=== PATIENT | male | born 1970 | race African-American/Black ===

== ENCOUNTER 2024-10-04 03:20 | Inpatient (IN) | payer OTHER ==
[~2024-10-04] VITALS: Ht 182.9 cm; Wt 118.0 kg
[2024-10-04] MEDS: MORPHINE SULFATE INJ 2 MG/ml SYRG IV ONE ×2 (04:03→05:45)
[2024-10-04 04:08] VITALS: PULSE 121; RESP 16; O2SAT 98
[2024-10-04 04:11] LABS: Basophils # (auto) 0.1 10 ^3/uL (0-0.2); Basophils % (auto) 1.2 % (0.0-2.0); Eosinophils # (auto) 0 10 ^3/uL (0-0.8); Eosinophils % (auto) 0.3 % (0.0-7.0); Hematocrit 23.2 % (41.0-53.0); Hemoglobin 7.9 g/dL (13.5-17.5); Lymphocytes # (auto) 1.3 10 ^3/uL (0.4-5.4); Lymphocytes % (auto) 15.8 % (10.0-50.0); Mean Corpuscular Hemoglobin 32.1 pg (28.0-32.0); Mean Corpuscular Hgb Conc. 34.3 g/dL (32.0-36.0); Mean Corpuscular Volume 93.7 fL (80.0-100.0); Neutrophils # (auto) 5.7 10 ^3/uL (1.6-8.6); Neutrophils % (auto) 70.7 % (37.0-80.0); Platelet Count (auto) 430 10^3/uL (140-450); Red Blood Cells 2.47 10^6/uL (4.5-5.90); Red Cell Distribution Width 13.6 % (11.8-14.3); White Blood Cell 8.1 10^3/uL (4.4-10.8)
[2024-10-04 04:19] LABS: INR 1.14 (0.9-1.15); Prothrombin Time 11.9 sec (9.3-11.8)
[2024-10-04 04:24] LABS: Alanine Aminotransferase 10 U/L (7-40); Albumin 4.4 g/dL (3.2-4.8); Alkaline Phosphatase 55 U/L (46-116); Anion Gap 9 (5-15); Aspartate Aminotransferase 16 U/L (13-40); BUN/Creatinine Ratio 9.9 (10.0-20.0); Blood Urea Nitrogen 14 mg/dL (9-23); Calcium 9.4 mg/dL (8.7-10.4); Carbon Dioxide 24 mmol/L (20-31); Chloride 104 mmol/L (98-107); Sodium 137 mmol/L (136-145); Total Protein 7.9 g/dL (5.7-8.2)
[2024-10-04 04:30] LABS: Glucose 124 mg/dL (74-106); Potassium 3.4 mmol/L (3.5-5.1)
--- NOTE | 2024-10-04 04:32 | ED.PDOC ---
History of Present Illness HPI Comments 54 y/o M, with a history of hepatomegaly secondary to polycystic liver disease and current hernia, presents with complaint of abdominal distention and intermittent, right-sided abdominal pain, with associated constipation, today. Patient is a poor historian. He reports history of worsening abdominal distens ion following polycystic liver disease diagnosis 12 years ago, with associated pain. Patient reports most recent onset of pain and last having a bowel movement 3 days ago. He has not seen a physician since the age of 39 and, recently, quitting alcohol consumption, with last intake 3 weeks ago. Denies any chest pain, shortness of breath, nausea, vomiting, or other associated symptoms or modifying factors. Chief Complaint: Abdominal Pain Time Seen by MD: 03:50 Reviewed Notes: Nurses Notes, Medications, Allergies Allergies: Coded Allergies: NO KNOWN ALLERGIES (Unverified , 10/04/24) Information Source: Patient Mode of Arrival: Ambulatory Severity: Moderate Timing: Other (Years) Prehospital treatment: None Review of Systems: REVIEW OF SYSTEMS: No fever, no chills, or fatigue HEENT: No sore throat, no earache, no congestion, no neck pain. Cardiac: No chest pain. No palpitations. Lungs: No shortness of breath, no cough. GI: Abdominal pain and distention. Constipation. No nausea, no vomiting, no diarrhea : No dysuria, frequency, or urgency. No hematuria. Musculoskeletal: No joint pain , no joint swelling, no extremity edema. Skin: No rash, no itching. Neuro: No headache, no dizziness, no weakness Vital Signs Vital Signs Date Time Temp Pulse Resp B/P (MAP) Pulse Ox O2 Delivery O2 Flow Rate FiO2 10/04/24 14:00 104 18 143/98 (113) 92 10/04/24 12:00 98.7 98.7 10/04/24 08:00 Room Air* 0 21 Physical Exam General: Awake, alert and oriented. No acute distress. Skin: Skin in warm, dry and intact. Appropriate color for ethnicity. HEENT: The head is normocephalic and atraumatic. Conjunctivae are clear without exudates or hemorrhage. Sclera is non-icteric. EOM are intact. No signs of nystagmus. Eyelids are normal in appearance without swelling or lesions. Oral mucosa is pink and moist Neck: The neck is supple with normal range of motion. No JVD. Cardiac: Heart rate and rhythm are normal. No murmurs, gallops, or rubs are auscultated. Respiratory: No signs of respiratory distress. Lung sounds are clear in all lobes bilaterally without rales, rhonchi, or wheezes. Abdominal: Abdominal distention with tense ascites. Prominent abdominal wall veins. Otherwise, abdomen is soft, non-tender without distention. Bowel sounds are present and normoactive in all four quadrants. Extremities: Upper and lower extremities are atraumatic in appearance without deformity or edema. Neurological: The patient is awake, alert and oriented to person, place, and cecil e with normal speech. Speech is clear. There is no facial asymmetry. Psychiatric: Appropriate mood and affect. Good judgement and insight. Was a procedure done? Was a procedure done?: No Differential Dx Considerations may include: Differential diagnoses considered include: Ascites, polycystic liver disease, liver failure, abdominal aortic aneurysm, TN, esophageal rupture, intestinal obstruction, mesenteric ischemia, perforated viscus or solid organ rupture, CHF with hepatomegaly, pneumonia, abscess, appendicitis, biliary disease, diverticulitis, gastritis, gastroenteritis, hepatitis, hernia, inflammatory bowel disease, pancreatitis, peptic ulcer disease, urinary tract infection, ureteral colic, constipation, GERD, irritable syndrome, abdominal wall pain, nonspecific abdominal pain, herpes zoster. X-Ray, Labs, Meds, VS Vital Signs Date Time Temp Pulse Resp B/P (MAP) Pulse Ox O2 Delivery O2 Flow Rate FiO2 10/04/24 14:00 104 18 143/98 (113) 92 10/04/24 12:00 98.7 97 18 138/96 (110) 95 98.7 10/04/24 08:00 Room Air* 0 21 10/04/24 08:00 98.3 101 18 148/101 (117) 92 98.3 10/04/24 06:15 79 18 179/115 10/04/24 05:45 113 18 168/107 10/04/24 05:18 113 18 168/107 10/04/24 04:08 121 16 98 Room Air* 0 21 10/04/24 04:03 98.3 121 22 169/108 (128) 98 98.3 10/04/24 04:03 121 16 169/108 10/04/24 03:31 97.8 125 20 159/116 (130) 95 97.8 Lab Test 10/04/24 06:51 10/04/24 03:36 Range/Units Urine Color Yellow Yellow Urine Clarity Clear Clear Urine pH 6.0 5.0-9.0 Urine Specific [place] > 1.050 H 1.001-1.035 Urine Protein 1+ H Negative Urine Ketones Negative Negative Urine Blood Trace H Negative /uL Urine Nitrite Negative Negative Urine Bilirubin Negative Negative Urine Urobilinogen 2 H Negative mg/dL Urine Leukocyte Esterase Negative Negative /uL Urine RBC 4 0 - 3 /hpf Urine Microscopic WBC 1 0-3 /HPF Urine Squamous Epithelial Cells Few <5 /hpf Urine Bacteria Few H None Seen /hpf Urine Hyaline Casts Few 0 - 2 /lpf Urine Mucus Few None Seen Urine Glucose Normal Normal mg/dL White Blood Count 8.1 4.4-10.8 10^3/uL Red Blood Count 2.47 L 4.5-5.90 10^6/uL Hemoglobin 7.9 L 13.5-17.5 g/dL Hematocrit 23.2 L 41.0-53.0 % Mean Corpuscular Volume 93.7 80.0-100.0 fL Mean Corpuscular Hemoglobin 32.1 H 28.0-32.0 pg Mean Corpuscular Hemoglobin Concent 34.3 32.0-36.0 g/dL Red Cell Distribution Width 13.6 11.8-14.3 % Platelet Count 430 140-450 10^3/uL Mean Platelet Volume 7.2 6.9-10.8 fL Neutrophils (%) (Auto) 70.7 37.0-80.0 % Lymphocytes (%) (Auto) 15.8 10.0-50.0 % Monocytes (%) (Auto) 12.0 0.0-12.0 % Eosinophils (%) (Auto) 0.3 0.0-7.0 % Basophils (%) (Auto) 1.2 0.0-2.0 % Neutrophils # (Auto) 5.7 1.6-8.6 10 ^3/uL Lymphocytes # (Auto) 1.3 0.4-5.4 10 ^3/uL Monocytes # (Auto) 1.0 0-1.3 10 ^3/uL Eosinophils # (Auto) 0 0-0.8 10 ^3/uL Basophils # (Auto) 0.1 0-0.2 10 ^3/uL Nucleated Red Blood Cells 0.0 % Prothrombin Time 11.9 H 9.3-11.8 sec Prothrombin Time INR 1.14 0.9-1.15 Sodium Level 137 136-145 mmol/L Potassium Level 3.4 L 3.5-5.1 mmol/L Chloride Level 104 98-107 mmol/L Carbon Dioxide Level 24 20-31 mmol/L Anion Gap 9 5-15 Blood Urea Nitrogen 14 9-23 mg/dL Creatinine 1.41 H 0.700-1.30 mg/dL Glomerular Filtration Rate Calc 59 >90 mL/min BUN/Creatinine Ratio 9.9 L 10.0-20.0 Serum Glucose 124 H 74-106 mg/dL Calcium Level 9.4 8.7-10.4 mg/dL Total Bilirubin 1.0 0.2-1.0 mg/dL Aspartate Amino Transferase (AST) 16 13-40 U/L Alanine Aminotransferase (ALT) 10 7-40 U/L Alkaline Phosphatase 55 46-116 U/L Total Protein 7.9 5.7-8.2 g/dL Albumin 4.4 3.2-4.8 g/dL Hepatitis A IgM Antibody Negative Hepatitis B Surface Antigen Negative Negative Hepatitis B Core IgM Antibody Negative Negative Hepatitis C Antibody Negative Negative [place] [address] Ph: [phone] DIAGNOSTIC IMAGING Diagnostic Imaging Report : [id number] Signed PATIENT: CHAIM WARD ACCT: [id number] UNIT: [id number] : 1970 LOC: ER ROOM / BED: / AGE / SEX: 54 / M ADM STATUS: REG ER SERVICE 5 ORDERING PHYSICIAN: GEOVANNY GARCES MD PROCEDURE(s): CXR1 - CHEST XRAY 1 VIEW REASON: Abdominal distention, ascites ORDER NUMBER(s): [id number], ACCESSION NUMBER(s): [id number] CHEST RADIOGRAPH Indication: Abdominal distention, ascites Technique: Single frontal view of the chest was obtained COMPARISON: None FINDINGS: Lines and Tubes: None Lungs: Clear Pleura: No effusion. No pneumothorax. Cardiomediastinal contours: Cardiomegaly Bones: Unremarkable IMPRESSION: Cardiomegaly ATED BY: GEE GARCIA MD DICTATED DATE/TIME: 10/04/24524 SIGNED BY: GEE GARCIA MD SIGNED DATE/TIME: 10/04/24524 CC: [place] [id number] Ph: [phone] DIAGNOSTIC IMAGING Diagnostic Imaging Report : [id number] Signed PATIENT: CHAIM WARD ACCT: [id number] UNIT: [id number] : 1970 LOC: ER ROOM / BED: / AGE / SEX: 54 / M ADM STATUS: REG ER SERVICE 5 ORDERING PHYSICIAN: GEOVANNY GARCES MD PROCEDURE(s): ABPLIV - CT AB PEL WITH IV CON ONLY REASON: Abdominal distention, ascites ORDER NUMBER(s): [id number], ACCESSION NUMBER(s): [id number] EXAM: CT Abdomen and Pelvis With Intravenous Contrast CLINICAL INDICATION: Abdominal distention, ascites TECHNIQUE: Axial computed tomography images of the abdomen and pelvis with intravenous contrast. This CT exam was performed using one or more of the following dose reduction techniques: automated exposure control, adjustment of the mA and/or kV according to patient size, and/or use of iterative reconstruction technique. CONTRAST: RADIATION DOSE: CTDIvol = 22.02 mGy, DLP = 1322.41 mGy-cm COMPARISON: None FINDINGS: ARTIFACTS: Motion artifact. LUNG BASES: Unremarkable. No mass. No consolidation. ABDOMEN: LIVER: Hepatomegaly with numerous cysts. GALLBLADDER AND BILE DUCTS: Unremarkable. No calcified stones. No ductal dilation. PANCREAS: Unremarkable. No mass. No ductal dilation. SPLEEN: Unremarkable. No splenomegaly. ADRENALS: Unremarkable. No mass. KIDNEYS AND URETERS: Unremarkable. No solid mass. No hydronephrosis. STOMACH AND BOWEL: Unremarkable. No obstruction. No mucosal thickening. PELVIS: APPENDIX: No findings to suggest acute appendicitis. BLADDER: Unremarkable. No mass. REPRODUCTIVE: Unremarkable as visualized. ABDOMEN and PELVIS: INTRAPERITONEAL SPACE: Ascites. No free air. BONES/JOINTS: Portable cavernous hemangioma of the L1 vertebral body. No acute fracture. No dislocation. SOFT TISSUES: Inguinal hernias, bilaterally. VASCULATURE: Unremarkable. No abdominal aortic aneurysm. LYMPH NODES: Unremarkable. No enlarged lymph nodes. OTHER FINDINGS: . . . IMPRESSION: 1. Ascites. 2. Hepatomegaly with numerous cysts. 3. Inguinal hernias, bilaterally. ATED BY: SHARMILA MTZ MD DICTATED DATE/TIME: 10/04/24530 SIGNED BY: SHARMILA MTZ MD SIGNED DATE/TIME: 10/04/24530 CC: Time of 1ST Reevaluation: 04:20 Reevaluation 1ST: Unchanged Patient Education/Counseling: Other (reason for admission ) Family Education/Counseling: No Family Present Departure 1 Departure Time of Disposition: 05:30 Impression: Primary Impression: Ascites Additional Impression: Abdominal pain Disposition: ADMITTED INPATIENT Condition: Stable Comments 54-year-old male with ascites. Patient admitted to hospitalist service for further treatment, evaluation and monitoring. Critical Care Note Critical Care Time?: No Stability Stability form required: No Heart Score Heart Score: Heart Score Response (Comments) Value History N/A 0 EKG N/A 0 Age N/A 0 Risk Factors N/A 0 Troponin N/A 0 Total 0 I personally scribed for GEOVANNY GARCES MD ([email or web address]) on 10/04/24 at 04:31. Elec tronically submitted by Danilo Barkley ([email or web address]). I personally scribed for GEOVANNY GARCES MD ([email or web address]) on 10/04/24 at 06:15. Electronically submitted by Danilo Barkley ([email or web address]). GEOVANNY GARCES MD October 04, 2024 04:31
[2024-10-04] MEDS: IOHEXOL 300 MG/ML 100ML BOTTLE IJ ONE (05:14)
--- NOTE | 2024-10-04 05:27 | DVH ---
CHEST RADIOGRAPH Indication: Abdominal distention, ascites Technique: Single frontal view of the chest was obtained COMPARISON: None FINDINGS: Lines and Tubes: None Lungs: Clear Pleura: No effusion. No pneumothorax. Cardiomediastinal contours: Cardiomegaly Bones: Unremarkable IMPRESSION: Cardiomegaly
--- NOTE | 2024-10-04 05:33 | DVH ---
EXAM: CT Abdomen and Pelvis With Intravenous Contrast CLINICAL INDICATION: Abdominal distention, ascites TECHNIQUE: Axial computed tomography images of the abdomen and pelvis with intravenous contrast. is CT exam was performed using one or more of the following dose reduction techniques: automated exp osure control, adjustment of the mA and/or kV according to patient size, and/or use of iterative yvette nstruction technique. CONTRAST: RADIATION DOSE: CTDIvol = 22.02 mGy, DLP = 1322.41 mGy-cm COMPARISON: None FINDINGS: ARTIFACTS: Motion artifact. LUNG BASES: Unremarkable. No mass. No consolidation. ABDOMEN: LIVER: Hepatomegaly with numerous cysts. GALLBLADDER AND BILE DUCTS: Unremarkable. No calcified stones. No ductal dilation. PANCREAS: Unremarkable. No mass. No ductal dilation. SPLEEN: Unremarkable. No splenomegaly. ADRENALS: Unremarkable. No mass. KIDNEYS AND URETERS: Unremarkable. No solid mass. No hydronephrosis. STOMACH AND BOWEL: Unremarkable. No obstruction. No mucosal thickening. PELVIS: APPENDIX: No findings to suggest acute appendicitis. BLADDER: Unremarkable. No mass. REPRODUCTIVE: Unremarkable as visualized. ABDOMEN and PELVIS: INTRAPERITONEAL SPACE: Ascites. No free air. BONES/JOINTS: Portable cavernous hemangioma of the L1 vertebral body. No acute fracture. No dislo cation. SOFT TISSUES: Inguinal hernias, bilaterally. VASCULATURE: Unremarkable. No abdominal aortic aneurysm. LYMPH NODES: Unremarkable. No enlarged lymph nodes. OTHER FINDINGS: . . . IMPRESSION: 1. Ascites. 2. Hepatomegaly with numerous cysts. 3. Inguinal hernias, bilaterally.
[2024-10-04 07:01] LABS: Urine Bacteria FEW /hpf (None Seen); Urine Blood TRACE /uL (Negative); Urine Clarity Clear (Clear); Urine Color Yellow (Yellow); Urine Hyaline Cast FEW /lpf (0 - 2); Urine Mucus FEW (None Seen); Urine Protein, UAD 1+ (Negative); Urine Specific Gravity > 1.050 (1.001-1.035); Urine Squamous Epithelial Cell FEW /hpf (<5); Urine Urobilinogen 2 mg/dL (Negative); Urine WBC 1 /HPF (0-3)
[2024-10-04 11:42] LABS: Hepatitis B Surface Antigen Negative (Negative)
[2024-10-04 12:06] LABS: Hepatitis A Ab IgM Negative; Hepatitis B Core IgM Negative (Negative); Hepatitis C Antibody Negative (Negative)
[2024-10-04] MEDS ORDERED: ACETAMINOPHEN 325 MG TAB PO PRN (14:15)
[2024-10-04] MEDS ORDERED: HYDROcodone-ACET 5/325MG TAB PO PRN (14:15)
[2024-10-04] MEDS ORDERED: ONDANSETRON HCL 4 MG/2 ML VIAL IV PRN (14:15)
--- NOTE | 2024-10-04 14:52 | DVH ---
ULTRASOUND ABDOMEN limited, 4 QUADRANTS INDICATION: ASCITES Evaluate for ascites. TECHNIQUE: The four quadrants of the abdomen were scanned in vallejo-scale to assess for the presence of ascites. N o solid organ assessment was performed. FINDINGS/IMPRESSIONS: Small volume ascites. Bilateral renal cysts partially visualized in the right kidney measuring up to 13 cm
[2024-10-04] MEDS: POTASSIUM CHL 20 Meq TABLET PO ONE (14:56)
[2024-10-04] MEDS: SODIUM CHLORIDE 0.9% 1,000 ML IV SCH (14:57)
[2024-10-04] MEDS: MORPHINE SULFATE INJ 2 MG/ml SYRG IV PRN (14:57)
--- NOTE | 2024-10-04 14:58 | DVHHP2 ---
History of Present Illness Reason for Visit: Ascites History of Present Illness The patient is a 54-year-old male with past medical history of polycystic liver disease, hernia, hepatomegaly and hypertension who presented to [facility] ED with complaint of abdominal pain associated with distention. Patient's symptoms progressively get worse with constipation, right-sided abdominal pain, lower extremity swelling, getting worse today that prompted this visit. Patient was seen and evaluated in the ED, laboratory data shows WBC 8.1, hemoglobin 7.9, hematocrit 23.2, platelets 430, sodium 137, potassium 3.4, BUN 14, creatinine 1.14, glucose 124, AST 16, ALT 10, blood pressure 138/96, heart rate 96, temperature 98.7 F, O2 saturation 96% on room air. Patient was given IV morphine sulfate 2 mg x 1, please see medication orders section in the computer. On my assessment, patient denied chest pain, no headache, no dizziness, no shortness a breath, no nausea, no vomiting, no fever, no chills. Patient was admitted for further evaluation and medical management. Past Medical History Polycystic liver disease, hernia, hepatomegaly, hypertension. Past Surgical History Denies all surgeries Family History Reviewed, noncontributory to the management of this case. Past Social History The patient lives at home, quit drinking alcohol 3 weeks ago, denies smoking or illicit drugs abuse. Review of Systems Constitutional: Yes: Weakness; No: Fever, Chills, Sweats, Malaise, Other Eyes: No: Pain, Vision change, Conjunctivae inflammation, Eyelid inflammation, Other, Redness ENT: No: Ear pain, Ear discharge, Nose pain, Nose discharge, Nose congestion, Mouth pain, Mouth swelling, Throat pain, Throat swelling, Other Respiratory: No: Cough, Dry, Shortness of breath, SOB with excertion, Wheezing, Hemoptysis, Pleuritic Pain, Sputum, Wheezing, Other Cardiovascular: No: Chest Pain, Palpitations, Orthopnea, Paroxysmal Noc. Dyspnea, Edema, Lt Headedness, Other Gastrointestinal: Abdominal Pain, Constipation, Other (Distended abdomen); No: Nausea, Vomiting, Diarrhea, Melena, Hematochezia Genitourinary: No Dysuria, No Frequency, No Incontinence, No Hematuria, No Retention, No Other Musculoskeletal: No: other, neck pain, shoulder pain, arm pain, back pain, hand pain, leg pain, foot pain Skin: No: Rash, Lesions, Jaundice, Bruising, Other Neurological: No: Weakness, Numbness, Incoordination, Change in speech, Confusion, Seizures, Other Allergies: Coded Allergies: NO KNOWN ALLERGIES (Unverified , 10/04/24) Medications Current Medications Medications Dose Ordered Sig/Nannette Route Start Time Stop Time Status Last Admin Dose Admin Sodium Chloride 1,000 ml @ 60 mls/hr [id number] IV 10/04/24 14:15 10/04/24 14:57 60 MLS/HR Acetaminophen/ Hydrocodone Bitart 1 tab Q4HP PRN PO 10/04/24 14:15 Ondansetron HCl 4 mg Q4HP PRN IV 10/04/24 14:15 Docusate Sodium 100 mg BIDPRN PRN PO 10/04/24 14:15 Acetaminophen 650 mg Q6HP PRN PO 10/04/24 14:15 Morphine Sulfate 2 mg Q4HPRN PRN IV 10/04/24 14:15 10/04/24 14:57 2 MG Exam Vital Signs Vital Signs Date Time Temp Pulse Resp B/P (MAP) Pulse Ox O2 Delivery O2 Flow Rate FiO2 10/04/24 14:57 95 20 143/98 10/04/24 12:00 98.7 95 98.7 10/04/24 08:00 Room Air* 0 21 General Appearance: Alert, Oriented X3, Cooperative, No acute distress HEENT: Atraumatic, PERRLA, EOMI, Mucous membr. moist/pink Respiratory: Clear to auscultation, Normal air movement Cardiovascular: Regular rate, Normal S1, Normal S2, No murmurs Abdominal: Normal bowel sounds, Soft, No hepatospenomegaly, No masses, Other (Reports tenderness/distention) Extremities: No clubbing, No cyanosis, Normal pulses, No tenderness/swelling, Other (Lower extremity swelling) Skin: No rashes, No breakdown, No significant lesion Neuro: Normal speech, Normal tone, Sensation intact, Cranial nerves 3-12 NL, Reflexes 2+, Other (Weakness) Psych/Mental Status: Mental status NL, Mood NL Labs/Xrays Labs Test 10/04/24 06:51 10/04/24 03:36 Range/Units Urine Color Yellow Yellow Urine Clarity Clear Clear Urine pH 6.0 5.0-9.0 Urine Specific [place] > 1.050 H 1.001-1.035 Urine Protein 1+ H Negative Urine Ketones Negative Negative Urine Blood Trace H Negative /uL Urine Nitrite Negative Negative Urine Bilirubin Negative Negative Urine Urobilinogen 2 H Negative mg/dL Urine Leukocyte Esterase Negative Negative /uL Urine RBC 4 0 - 3 /hpf Urine Microscopic WBC 1 0-3 /HPF Urine Squamous Epithelial Cells Few <5 /hpf Urine Bacteria Few H None Seen /hpf Urine Hyaline Casts Few 0 - 2 /lpf Urine Mucus Few None Seen Urine Glucose Normal Normal mg/dL White Blood Count 8.1 4.4-10.8 10^3/uL Red Blood Count 2.47 L 4.5-5.90 10^6/uL Hemoglobin 7.9 L 13.5-17.5 g/dL Hematocrit 23.2 L 41.0-53.0 % Mean Corpuscular Volume 93.7 80.0-100.0 fL Mean Corpuscular Hemoglobin 32.1 H 28.0-32.0 pg Mean Corpuscular Hemoglobin Concent 34.3 32.0-36.0 g/dL Red Cell Distribution Width 13.6 11.8-14.3 % Platelet Count 430 140-450 10^3/uL Mean Platelet Volume 7.2 6.9-10.8 fL Neutrophils (%) (Auto) 70.7 37.0-80.0 % Lymphocytes (%) (Auto) 15.8 10.0-50.0 % Monocytes (%) (Auto) 12.0 0.0-12.0 % Eosinophils (%) (Auto) 0.3 0.0-7.0 % Basophils (%) (Auto) 1.2 0.0-2.0 % Neutrophils # (Auto) 5.7 1.6-8.6 10 ^3/uL Lymphocytes # (Auto) 1.3 0.4-5.4 10 ^3/uL Monocytes # (Auto) 1.0 0-1.3 10 ^3/uL Eosinophils # (Auto) 0 0-0.8 10 ^3/uL Basophils # (Auto) 0.1 0-0.2 10 ^3/uL Nucleated Red Blood Cells 0.0 % Prothrombin Time 11.9 H 9.3-11.8 sec Prothrombin Time INR 1.14 0.9-1.15 Sodium Level 137 136-145 mmol/L Potassium Level 3.4 L 3.5-5.1 mmol/L Chloride Level 104 98-107 mmol/L Carbon Dioxide Level 24 20-31 mmol/L Anion Gap 9 5-15 Blood Urea Nitrogen 14 9-23 mg/dL Creatinine 1.41 H 0.700-1.30 mg/dL Glomerular Filtration Rate Calc 59 >90 mL/min BUN/Creatinine Ratio 9.9 L 10.0-20.0 Serum Glucose 124 H 74-106 mg/dL Calcium Level 9.4 8.7-10.4 mg/dL Total Bilirubin 1.0 0.2-1.0 mg/dL Aspartate Amino Transferase (AST) 16 13-40 U/L Alanine Aminotransferase (ALT) 10 7-40 U/L Alkaline Phosphatase 55 46-116 U/L Total Protein 7.9 5.7-8.2 g/dL Albumin 4.4 3.2-4.8 g/dL Hepatitis A IgM Antibody Negative Hepatitis B Surface Antigen Negative Negative Hepatitis B Core IgM Antibody Negative Negative Hepatitis C Antibody Negative Negative PATIENT: CHAIM WARD ACCT: [id number] UNIT: [id number] : 1970 LOC: ER ROOM / BED: / AGE / SEX: 54 / M ADM STATUS: REG ER SERVICE [id number] ORDERING PHYSICIAN: GEOVANNY GARCES MD PROCEDURE(s): ABPLIV - CT AB PEL WITH IV CON ONLY REASON: Abdominal distention, ascites ORDER NUMBER(s): [id number], ACCESSION NUMBER(s): [id number] EXAM: CT Abdomen and Pelvis With Intravenous Contrast CLINICAL INDICATION: Abdominal distention, ascites TECHNIQUE: Axial computed tomography images of the abdomen and pelvis with intravenous contrast. This CT exam was performed using one or more of the following dose reduction techniques: automated exposure control, adjustment of the mA and/or kV according to patient size, and/or use of iterative reconstruction technique. CONTRAST: RADIATION DOSE: CTDIvol = 22.02 mGy, DLP = 1322.41 mGy-cm COMPARISON: None FINDINGS: ARTIFACTS: Motion artifact. LUNG BASES: Unremarkable. No mass. No consolidation. ABDOMEN: LIVER: Hepatomegaly with numerous cysts. GALLBLADDER AND BILE DUCTS: Unremarkable. No calcified stones. No ductal dilation. PANCREAS: Unremarkable. No mass. No ductal dilation. SPLEEN: Unremarkable. No splenomegaly. ADRENALS: Unremarkable. No mass. KIDNEYS AND URETERS: Unremarkable. No solid mass. No hydronephrosis. STOMACH AND BOWEL: Unremarkable. No obstruction. No mucosal thickening. PELVIS: APPENDIX: No findings to suggest acute appendicitis. BLADDER: Unremarkable. No mass. REPRODUCTIVE: Unremarkable as visualized. ABDOMEN and PELVIS: INTRAPERITONEAL SPACE: Ascites. No free air. BONES/JOINTS: Portable cavernous hemangioma of the L1 vertebral body. No acute fracture. No dislocation. SOFT TISSUES: Inguinal hernias, bilaterally. VASCULATURE: Unremarkable. No abdominal aortic aneurysm. LYMPH NODES: Unremarkable. No enlarged lymph nodes. OTHER FINDINGS: IMPRESSION: 1. Ascites. 2. Hepatomegaly with numerous cysts. 3. Inguinal hernias, bilaterally. ORDERING PHYSICIAN: GEOVANNY GARCES MD PROCEDURE(s): ABDL - ABDOMEN LIMITED REASON: ASCITES ORDER NUMBER(s): [id number], ACCESSION NUMBER(s): [id number] ULTRASOUND ABDOMEN limited, 4 QUADRANTS INDICATION: ASCITES Evaluate for ascites. TECHNIQUE: The four quadrants of the abdomen were scanned in vallejo-scale to assess for the presence of ascites. No solid organ assessment was performed. FINDINGS/IMPRESSIONS: Small volume ascites. Bilateral renal cysts partially visualized in the right kidney measuring up to 13 cm ORDERING PHYSICIAN: GEOVANNY GARCES MD PROCEDURE(s): CXR1 - CHEST XRAY 1 VIEW REASON: Abdominal distention, ascites ORDER NUMBER(s): [id number], ACCESSION NUMBER(s): [id number] CHEST RADIOGRAPH Indication: Abdominal distention, ascites Technique: Single frontal view of the chest was obtained COMPARISON: None FINDINGS: Lines and Tubes: None Lungs: Clear Pleura: No effusion. No pneumothorax. Cardiomediastinal contours: Cardiomegaly Bones: Unremarkable IMPRESSION: Cardiomegaly Assessment/Plan Assessment/Plan Ascites Abdominal pain Hypokalemia Hepatomegaly with numerous cysts Anemia, unspecified Generalized weakness Plan 1. Admit to telemetry unit 2. Breathing treatment 3. Pain control management 4. Management of fluids and electrolytes 5. Consultation for GI/hospitalist 6. Diagnostic tests abdomen/pelvis CT 7. DVT prophylaxis on SCDs 8. Repeat labs CBC, CMP in a.m. 9. Continue with current medical management 10. Treatment plan discussed with patient and RN. Patient verbalized understanding. Plan discussed with: Patient, Other (RN) My Orders Orders - CLARISA ROQUE DNP Procedure Category Date Status Time Type And Screen BBK 10/04/24 In Process 14:12 Paracentesis US 10/04/24 Logged 14:12 Allergies LUZ ELENA 10/04/24 In Process 14:12 Code Status CODE 10/04/24 Transmitted 14:12 Sodium Chloride 0.9% PHA 10/04/24 In Process 14:15 Oxygen Per Hour RT 10/04/24 Transmitted 14:12 Hydrocodone-Acet PHA 10/04/24 In Process 5/325mg Tab ([place] 14:15 Ondansetron Hcl PHA 10/04/24 In Process (Zofran) 14:15 Docusate Sodium PHA 10/04/24 In Process Capsule (Colace 14:15 Complete Blood Count LAB 10/05/24 Verified 04:00 Comprehensive LAB 10/05/24 Verified Metabolic Panel 04:00 Condition: Serious LUZ ELENA 10/04/24 In Process 14:12 Acetaminophen Tablet PHA 10/04/24 In Process (Tylenol Tablet) 14:15 Clear Liq Diet DIET 10/04/24 Transmitted Dinner Bedrest With Bathroom LUZ ELENA 10/04/24 In Process Privileg 14:12 Morphine Sulfate PHA 10/04/24 In Process Injection 14:15 Sequential LUZ ELENA 10/04/24 In Process Compression Device Problem List: (1) Ascites (2) Hepatomegaly (3) Hypokalemia (4) Abdominal pain (5) Anemia, unspecified (6) Generalized weakness Date of Service: October 04, 2024 Billing Provider: CLARISA ROQUE DNP Common Visit Codes: 98672-[id number] INP/OBS CARE (HIGH) CLARISA ROQUE DNP October 04, 2024 14:58
[2024-10-04] MEDS ORDERED: MORPHINE SULFATE INJ 2 MG/ml SYRG IV PRN (15:00)
[2024-10-04] MEDS ORDERED: NITROGLYCERIN 0.4 MG SL TAB SL PRN (15:00)
[2024-10-04 18:50] VITALS: BP 170/101; PULSE 107; RESP 20; TEMP 98; O2SAT 94
[2024-10-04] MEDS: hydrALAZINE HCL 20 MG/ML VL IV PRN (19:07)
[2024-10-04] MEDS: SPIRONOLACTONE 25 MG TAB PO ONE (20:32)
[2024-10-04 21:00] VITALS: BP_SYST 169; BP_SYST 170; BP_DIAS 101; BP_DIAS 105; PULSE 107; PULSE 108; RESP 20; TEMP 98.1; O2SAT 94; O2SAT 96
[2024-10-04] MEDS: amLODIPine BESYLATE 5 MG TAB PO ONE (22:50)
[2024-10-05] VITALS (7 sets, daily range): BP systolic 124–156; BP diastolic 73–102; PULSE 99–107; RESP 18–24; TEMP 97.8–98.2; O2SAT 94–100
[2024-10-05 07:29] LABS: Basophils # (auto) 0.1 10 ^3/uL (0-0.2); Basophils % (auto) 0.7 % (0.0-2.0); Eosinophils # (auto) 0 10 ^3/uL (0-0.8); Eosinophils % (auto) 0.2 % (0.0-7.0); Hematocrit 20.8 % (41.0-53.0); Hemoglobin 7.3 g/dL (13.5-17.5); Lymphocytes # (auto) 1.3 10 ^3/uL (0.4-5.4); Lymphocytes % (auto) 17.5 % (10.0-50.0); Mean Corpuscular Hemoglobin 32.7 pg (28.0-32.0); Mean Corpuscular Hgb Conc. 35.3 g/dL (32.0-36.0); Mean Corpuscular Volume 92.7 fL (80.0-100.0); Monocytes % (auto) 13.4 % (0.0-12.0); Neutrophils # (auto) 5.1 10 ^3/uL (1.6-8.6); Neutrophils % (auto) 68.2 % (37.0-80.0); Nucleated Red Blood Cells % 0.1 %; Platelet Count (auto) 373 10^3/uL (140-450); Red Blood Cells 2.24 10^6/uL (4.5-5.90); Red Cell Distribution Width 13.6 % (11.8-14.3); White Blood Cell 7.5 10^3/uL (4.4-10.8)
[2024-10-05 07:30] LABS: Alanine Aminotransferase 11 U/L (7-40); Albumin 4.2 g/dL (3.2-4.8); Alkaline Phosphatase 50 U/L (46-116); Anion Gap 10 (5-15); Aspartate Aminotransferase 20 U/L (13-40); BUN/Creatinine Ratio 13.7 (10.0-20.0); Blood Urea Nitrogen 17 mg/dL (9-23); Calcium 9.5 mg/dL (8.7-10.4); Carbon Dioxide 23 mmol/L (20-31); Chloride 102 mmol/L (98-107); Potassium 3.9 mmol/L (3.5-5.1); Total Protein 7.8 g/dL (5.7-8.2)
[2024-10-05 07:31] LABS: Bilirubin, Total 1.1 mg/dL (0.2-1.0)
[2024-10-05 07:32] LABS: Glucose 110 mg/dL (74-106); Sodium 135 mmol/L (136-145)
[2024-10-05] MEDS: SPIRONOLACTONE 25 MG TAB PO SCH (09:21)
[2024-10-05] MEDS: amLODIPine BESYLATE 5 MG TAB PO SCH (09:21)
[2024-10-05] MEDS: DOCUSATE SOD 100 MG CAP PO PRN (09:21)
--- NOTE | 2024-10-05 13:09 | DVH ---
US PARACENTESIS, HISTORY: ASCITES PROCEDURE: Informed consent was obtained. The patient was placed in supine position. A limited locali zation ultrasound of the abdomen was obtained, and the skin site over the largest pocket of fluid was marked and entry site was prepped with chlorhexidine which was allowed to dry and draped in the usua l sterile fashion. Time out was performed. Following administration of 1% lidocaine local anesthetic, a 5 Afghan centesis needle catheter was percutaneously inserted into the peritoneal collection until fluid was aspirated. The catheter was advanced into the fluid collection and the needle removed. [place] 8150 cc of fluid was aspirated and specimen sent for appropriate cultures/cytology/cultures and cy tology. The catheter was then removed and a sterile dressing applied. No immediate complication was identified. FINDINGS: Limited ultrasound imaging demonstrates moderate ascites. Aspirated fluid was bloody. IMPRESSION: US-guided paracentesis with 8.2L bloody ascites.
--- NOTE | 2024-10-05 13:41 | DVHINCON2 ---
GI Consult Consult Note GI Consult note Date of Consultation: 10/05/2024 Chief Complaint: Hepatomegaly Referring Physician: Nilda OWEN H&P: 54-year-old male with past medical history of polycystic liver disease, hernia, hepatomegaly, and hypertension presented to ER with complains of abdominal pain associated with distention. Patient admits to having abdominal distention which was gradual. Has upper abdominal pain, which is intermittent and stabbing in nature. No nausea or vomiting. No melena or red blood in stool. Patient diagnosed with polycystic liver disease 13 years ago, and has not been seen a liver specialist in the recent years. No EGD or colonoscopy in past. Patient admits to heavy alcohol use Past Medical History: Polycystic liver disease, hernia, hepatomegaly, hypertension. Past Surgical History: Denies Social History: The patient lives at home, quit drinking alcohol 3 weeks ago, denies smoking or illicit drugs abuse. Family History: Noncontributory Review of Systems: Constitutional: no fever, chill, weight loss HEENT: no eye pain, no hearing loss, no oral lesion, no scleral icterus Heart: no chest pain, no chest pressure Lung: no cough, no dyspnea with exertion Abdomen: see HPI Physical exam: General: NAD, AAOX3 Chest: lung bruner clear to auscultation Heart: RRR, no murmur Abdomen: Moderate to severe-distended, mild generalized tenderness to palpation, +BS Labs: Labs Test 10/05/24 06:54 10/04/24 19:43 10/04/24 06:51 10/04/24 03:36 Range/Units White Blood Count 7.5 4.4-10.8 10^3/uL Red Blood Count 2.24 L 4.5-5.90 10^6/uL Hemoglobin 7.3 L 13.5-17.5 g/dL Hematocrit 20.8 #L 41.0-53.0 % Mean Corpuscular Volume 92.7 80.0-100.0 fL Mean Corpuscular Hemoglobin 32.7 H 28.0-32.0 pg Mean Corpuscular Hemoglobin Concent 35.3 32.0-36.0 g/dL Red Cell Distribution Width 13.6 11.8-14.3 % Platelet Count 373 140-450 10^3/uL Mean Platelet Volume 7.0 6.9-10.8 fL Neutrophils (%) (Auto) 68.2 37.0-80.0 % Lymphocytes (%) (Auto) 17.5 10.0-50.0 % Monocytes (%) (Auto) 13.4 H 0.0-12.0 % Eosinophils (%) (Auto) 0.2 0.0-7.0 % Basophils (%) (Auto) 0.7 0.0-2.0 % Neutrophils # (Auto) 5.1 1.6-8.6 10 ^3/uL Lymphocytes # (Auto) 1.3 0.4-5.4 10 ^3/uL Monocytes # (Auto) 1.0 0-1.3 10 ^3/uL Eosinophils # (Auto) 0 0-0.8 10 ^3/uL Basophils # (Auto) 0.1 0-0.2 10 ^3/uL Nucleated Red Blood Cells 0.1 % Sodium Level 135 L 136-145 mmol/L Potassium Level 3.9 3.5-5.1 mmol/L Chloride Level 102 98-107 mmol/L Carbon Dioxide Level 23 20-31 mmol/L Anion Gap 10 5-15 Blood Urea Nitrogen 17 9-23 mg/dL Creatinine 1.24 0.700-1.30 mg/dL Glomerular Filtration Rate Calc 69 >90 mL/min BUN/Creatinine Ratio 13.7 10.0-20.0 Serum Glucose 110 H 74-106 mg/dL Calcium Level 9.5 8.7-10.4 mg/dL Total Bilirubin 1.1 H 0.2-1.0 mg/dL Aspartate Amino Transferase (AST) 20 13-40 U/L Alanine Aminotransferase (ALT) 11 7-40 U/L Alkaline Phosphatase 50 46-116 U/L Total Protein 7.8 5.7-8.2 g/dL Albumin 4.2 3.2-4.8 g/dL Ammonia < 10 L 11-32 umol/L Urine Color Yellow Yellow Urine Clarity Clear Clear Urine pH 6.0 5.0-9.0 Urine Specific [place] > 1.050 H 1.001-1.035 Urine Protein 1+ H Negative Urine Ketones Negative Negative Urine Blood Trace H Negative /uL Urine Nitrite Negative Negative Urine Bilirubin Negative Negative Urine Urobilinogen 2 H Negative mg/dL Urine Leukocyte Esterase Negative Negative /uL Urine RBC 4 0 - 3 /hpf Urine Microscopic WBC 1 0-3 /HPF Urine Squamous Epithelial Cells Few <5 /hpf Urine Bacteria Few H None Seen /hpf Urine Hyaline Casts Few 0 - 2 /lpf Urine Mucus Few None Seen Urine Glucose Normal Normal mg/dL Prothrombin Time 11.9 H 9.3-11.8 sec Prothrombin Time INR 1.14 0.9-1.15 Hepatitis A IgM Antibody Negative Hepatitis B Surface Antigen Negative Negative Hepatitis B Core IgM Antibody Negative Negative Hepatitis C Antibody Negative Negative Imaging: Abdominal ultrasound FINDINGS/IMPRESSIONS: Small volume ascites. Bilateral renal cysts partially visualized in the right kidney measuring up to [address] abdomen pelvis IMPRESSION: 1. Ascites. 2. Hepatomegaly with numerous cysts. 3. Inguinal hernias, bilaterally. Paracentesis report IMPRESSION: US-guided paracentesis with 8.2L bloody ascites. Assessment: Ascites Abdominal pain Anemia Hepatomegaly with numerous liver cyst Alcohol use Plan: Discussed with Dr. Thapa Labs for AFP. Ferritin,Ammonia DC alcohol discussed extensively Recommend outpatient GI follow-up for elective GI procedures as needed We will continue to follow patient Thank you for this consult Date of Service: October 05, 2024 Billing Provider: ANKUSH MAGANA Common Visit Codes: CONSULT ONLY Consultation Codes: [id number] CONSULT <60MIN ANKUSH MAGANA October 05, 2024 13:41
[2024-10-05 15:04] LABS: Body Fluid Red Blood Cells 1217075 CUMM (0-2000); Body Fluid White Blood Cells 1544 CUMM (0-200)
--- NOTE | 2024-10-05 16:38 | DVHPN2 ---
Subjective 54-year-old male with a history of polycystic liver disease, hepatomegaly, hypertension, morbid obesity, alcohol abuse comes with chief complaint of increased abdominal swelling and pain Ultrasound of the abdomen showed ascites and bilateral renal cysts CT scan of the abdomen showed ascites and hepatomegaly with numerous cysts and bilateral inguinal hernias Chest x-ray shows cardiomegaly Paracentesis was done with 8.2 L bloody fluid drained Patient is a heavy alcohol drinker Changes from previous H/P or p: Changes Eyes: No Pain, No Vision change, No Conjunctivae inflammation, No Eyelid inflammation, No Other, No Redness ENT: No Ear pain, No Ear discharge, No Nose pain, No Nose discharge, No Nose congestion, No Mouth pain, No Mouth swelling, No Throat pain, No Throat swelling, No Other Cardiovascular: No Chest Pain, No Palpitations, No Orthopnea, No Paroxysmal Noc. Dyspnea, No Edema, No Lt Headedness, No Other Respiratory: No Cough, No Dry, No Shortness of breath, No SOB with excertion, No Wheezing, No Hemoptysis, No Pleuritic Pain, No Sputum, No Other Gastrointestinal: No Nausea, No Vomiting; Abdominal Pain; No Diarrhea; C onstipation; No Melena, No Hematochezia; Other (Distended abdomen) Genitourinary: No Dysuria, No Frequency, No Incontinence, No Hematuria, No Retention, No Other Musculoskeletal: No other, No neck pain, No shoulder pain, No arm pain, No back pain, No hand pain, No leg pain, No foot pain Skin: No Rash, No Lesions, No Jaundice, No Bruising, No Other Objective Vitals Vital Signs Date Time Temp Pulse Resp B/P (MAP) Pulse Ox O2 Delivery O2 Flow Rate FiO2 10/05/24 09:21 134/79 10/05/24 09:00 97.8 99 18 96 97.8 10/05/24 08:00 Room Air* 0 21 General Appearance: Alert, Oriented X3, Cooperative, mild distress Cardiovascular: Regular rate, Normal S1, Normal S2 Extremities: Other (2+ edema bilaterally in the lower extremities) Medications Current Medications Medications Dose Ordered Sig/Nannette Route Start Time Stop Time Status Last Admin Dose Admin Sodium Chloride 1,000 ml @ 60 mls/hr [id number] IV 10/04/24 14:15 10/04/24 14:57 60 MLS/HR Acetaminophen/ Hydrocodone Bitart 1 tab Q4HP PRN PO 10/04/24 14:15 Ondansetron HCl 4 mg Q4HP PRN IV 10/04/24 14:15 Docusate Sodium 100 mg BIDPRN PRN PO 10/04/24 14:15 10/05/24 09:21 100 MG Acetaminophen 650 mg Q6HP PRN PO 10/04/24 14:15 Morphine Sulfate 2 mg Q4HPRN PRN IV 10/04/24 14:15 10/05/24 05:39 2 MG Nitroglycerin 0.4 mg Q5MINP PRN SL 10/04/24 15:00 Morphine Sulfate 2 mg Q30M PRN IV 10/04/24 15:00 Spironolactone 50 mg DAILY PO 10/05/24 10:00 10/05/24 09:21 50 MG Hydralazine HCl 10 mg Q6HP PRN IV 10/04/24 18:30 10/05/24 03:51 10 MG Amlodipine Besylate 10 mg DAILY PO 10/05/24 10:00 10/05/24 09:21 10 MG Laboratory Results Laboratory Tests 10/05/24 06:54 Chemistry Test 10/05/24 06:54 Albumin 4.2 g/dL (3.2-4.8) Calcium Level 9.5 mg/dL (8.7-10.4) Total Protein 7.8 g/dL (5.7-8.2) LFT Test 10/05/24 06:54 Alanine Aminotransferase (ALT) 11 U/L (7-40) Alkaline Phosphatase 50 U/L (46-116) Aspartate Amino Transferase (AST) 20 U/L (13-40) Total Bilirubin 1.1 mg/dL (0.2-1.0) H Urinalysis Test 10/04/24 06:51 Urine Color Yellow (Yellow) Urine Clarity Clear (Clear) Urine pH 6.0 (5.0-9.0) Urine Specific [place] > 1.050 (1.001-1.035) Urine Protein 1+ (Negative) H Urine Ketones Negative (Negative) Urine Blood Trace /uL (Negative) H Urine Nitrite Negative (Negative) Urine Bilirubin Negative (Negative) Urine Urobilinogen 2 mg/dL (Negative) H Urine Leukocyte Esterase Negative /uL (Negative) Urine RBC 4 /hpf (0 - 3) Urine Microscopic WBC 1 /HPF (0-3) Urine Squamous Epithelial Cells Few /hpf (<5) Urine Bacteria Few /hpf (None Seen) H Urine Hyaline Casts Few /lpf (0 - 2) Urine Mucus Few (None Seen) Urine Glucose Normal mg/dL (Normal) Assessment/Plan Assessment/Plan Ascites Chronic liver disease Polycystic liver disease Hepatomegaly Cardiomegaly Normocytic anemia Hyponatremia Hypertension Alcohol abuse Plan Paracentesis revealed bloody ascites fluid sent for analysis Stop the IV fluids Start IV furosemide and p.o. spironolactone GI consult Cytology on the ascites fluid Check tumor markers including alpha-fetoprotein and ferritin Full code Advance directives discussed for 18 minutes Multivitamins and folic acid and thiamine Plan discussed with: Patient Date of Service: October 05, 2024 Billing Provider: DAVID YOUNG MD Common Visit Codes: [id number] INP/OBS CARE(HIGH) Secondary Visit Codes: [id number] CARE PLAN 30 MINUTES DAVID YOUNG MD October 05, 2024 16:38
[2024-10-05] MEDS: MULTIPLE VITAMIN TAB PO ONE (17:40)
[2024-10-05] MEDS: THIAMINE HCL 100 MG TAB PO ONE (17:40)
[2024-10-05] MEDS: FOLIC ACID 1 MG TAB PO ONE (17:40)
[2024-10-05] MEDS: FUROSEMIDE 20 MG/2 ML VIAL IV SCH (18:03)
[2024-10-06] VITALS (7 sets, daily range): BP systolic 129–145; BP diastolic 66–83; PULSE 89–99; RESP 17–19; TEMP 97.7–98.6; O2SAT 94–97
[2024-10-06 07:53] LABS: Basophils # (auto) 0 10 ^3/uL (0-0.2); Basophils % (auto) 0.6 % (0.0-2.0); Eosinophils # (auto) 0 10 ^3/uL (0-0.8); Eosinophils % (auto) 0.4 % (0.0-7.0); Hematocrit 22.6 % (41.0-53.0); Hemoglobin 7.7 g/dL (13.5-17.5); Lymphocytes % (auto) 19.3 % (10.0-50.0); Mean Corpuscular Hemoglobin 31.8 pg (28.0-32.0); Mean Corpuscular Hgb Conc. 34.2 g/dL (32.0-36.0); Mean Corpuscular Volume 92.9 fL (80.0-100.0); Monocytes # (auto) 0.6 10 ^3/uL (0-1.3); Monocytes % (auto) 11.8 % (0.0-12.0); Neutrophils # (auto) 3.5 10 ^3/uL (1.6-8.6); Neutrophils % (auto) 67.9 % (37.0-80.0); Platelet Count (auto) 382 10^3/uL (140-450); Red Blood Cells 2.43 10^6/uL (4.5-5.90); Red Cell Distribution Width 13.2 % (11.8-14.3); White Blood Cell 5.1 10^3/uL (4.4-10.8)
[2024-10-06 08:04] LABS: INR 1.15 (0.9-1.15); Partial Thromboplastin Time 25.8 SEC (24.5-34.5)
[2024-10-06 08:08] LABS: Alanine Aminotransferase 14 U/L (7-40); Alkaline Phosphatase 53 U/L (46-116); Anion Gap 9 (5-15); BUN/Creatinine Ratio 12.5 (10.0-20.0); Blood Urea Nitrogen 15 mg/dL (9-23); Calcium 9.4 mg/dL (8.7-10.4); Carbon Dioxide 26 mmol/L (20-31); Chloride 102 mmol/L (98-107); Glucose 101 mg/dL (74-106); LDL Cholesterol 61 mg/dL (< 100); Magnesium 2.1 mg/dL (1.6-2.6); Potassium 3.7 mmol/L (3.5-5.1); Sodium 137 mmol/L (136-145); Total Protein 7.5 g/dL (5.7-8.2); Triglycerides 75 mg/dL (< 150)
[2024-10-06 08:09] LABS: Albumin 4.1 g/dL (3.2-4.8); Aspartate Aminotransferase 23 U/L (13-40); Cholesterol 107 mg/dL (< 200)
[2024-10-06 08:16] LABS: HDL Cholesterol 26 mg/dL (40-59)
[2024-10-06 09:07] LABS: Lipase 51 U/L (12-53)
[2024-10-06] MEDS: FOLIC ACID 1 MG TAB PO SCH (09:40)
[2024-10-06] MEDS: MULTIPLE VITAMIN TAB PO SCH (09:40)
[2024-10-06] MEDS: THIAMINE HCL 100 MG TAB PO SCH (09:40)
--- NOTE | 2024-10-06 10:48 | DVHPN2 ---
Subjective Doing okay Denies abdominal pain He feels better Changes from previous H/P or p: Changes Eyes: No Pain, No Vision change, No Conjunctivae inflammation, No Eyelid inflammation, No Other, No Redness ENT: No Ear pain, No Ear discharge, No Nose pain, No Nose discharge, No Nose congestion, No Mouth pain, No Mouth swelling, No Throat pain, No Throat swelling, No Other Cardiovascular: No Chest Pain, No Palpitations, No Orthopnea, No Paroxysmal Noc. Dyspnea, No Edema, No Lt Headedness, No Other Respiratory: No Cough, No Dry, No Shortness of breath, No SOB with excertion, No Wheezing, No Hemoptysis, No Pleuritic Pain, No Sputum, No Other Gastrointestinal: No Nausea, No Vomiting; Abdominal Pain; No Diarrhea; C onstipation; No Melena, No Hematochezia; Other (Distended abdomen) Genitourinary: No Dysuria, No Frequency, No Incontinence, No Hematuria, No Retention, No Other Musculoskeletal: No other, No neck pain, No shoulder pain, No arm pain, No back pain, No hand pain, No leg pain, No foot pain Skin: No Rash, No Lesions, No Jaundice, No Bruising, No Other Objective Vitals Vital Signs Date Time Temp Pulse Resp B/P (MAP) Pulse Ox O2 Delivery O2 Flow Rate FiO2 10/06/24 09:43 129/66 10/06/24 09:00 97.9 94 18 95 97.9 10/06/24 08:00 Room Air* 0 21 Intake/Output Intake and Output 10/06/24 07:00 Intake Total 570 ml Balance 570 ml Intake Oral 570 ml # Voids 3 General Appearance: Alert, Oriented X3, Cooperative, mild distress Cardiovascular: Regular rate, Normal S1, Normal S2 Extremities: Other (2+ edema bilaterally in the lower extremities) Medications Current Medications Medications Dose Ordered Sig/Nannette Route Start Time Stop Time Status Last Admin Dose Admin Acetaminophen/ Hydrocodone Bitart 1 tab Q4HP PRN PO 10/04/24 14:15 Ondansetron HCl 4 mg Q4HP PRN IV 10/04/24 14:15 Docusate Sodium 100 mg BIDPRN PRN PO 10/04/24 14:15 10/05/24 09:21 100 MG Acetaminophen 650 mg Q6HP PRN PO 10/04/24 14:15 Morphine Sulfate 2 mg Q4HPRN PRN IV 10/04/24 14:15 10/05/24 20:34 2 MG Nitroglycerin 0.4 mg Q5MINP PRN SL 10/04/24 15:00 Morphine Sulfate 2 mg Q30M PRN IV 10/04/24 15:00 Spironolactone 50 mg DAILY PO 10/05/24 10:00 10/06/24 09:44 50 MG Hydralazine HCl 10 mg Q6HP PRN IV 10/04/24 18:30 10/05/24 03:51 10 MG Amlodipine Besylate 10 mg DAILY PO 10/05/24 10:00 10/06/24 09:43 10 MG Furosemide 20 mg BIDD IV 10/05/24 18:00 10/06/24 05:34 20 MG Thiamine HCl 100 mg DAILY PO 10/06/24 10:00 10/06/24 09:40 100 MG Folic Acid 1 mg DAILY PO 10/06/24 10:00 10/06/24 09:40 1 MG Multivitamins 1 tab DAILY PO 10/06/24 10:00 10/06/24 09:40 1 TAB Laboratory Results Laboratory Tests 10/06/24 07:26 Chemistry Test 10/06/24 07:26 Albumin 4.1 g/dL (3.2-4.8) Calcium Level 9.4 mg/dL (8.7-10.4) Magnesium Level 2.1 mg/dL (1.6-2.6) Total Protein 7.5 g/dL (5.7-8.2) Coagulation Test 10/06/24 07:26 Prothrombin Time 12.0 sec (9.3-11.8) H Prothrombin Time INR 1.15 (0.9-1.15) Activated Partial Thromboplast Time 25.8 SEC (24.5-34.5) Lipid panel Test 10/06/24 07:26 Cholesterol Level 107 mg/dL (< 200) HDL Cholesterol 26 mg/dL (40-59) L Lipase 51 U/L (12-53) Triglycerides Level 75 mg/dL (< 150) LFT Test 10/06/24 07:26 Alanine Aminotransferase (ALT) 14 U/L (7-40) Alkaline Phosphatase 53 U/L (46-116) Aspartate Amino Transferase (AST) 23 U/L (13-40) Total Bilirubin 1.0 mg/dL (0.2-1.0) HgA1c, TSH Test 10/06/24 07:26 Hemoglobin A1c 5.4 % A1C (<5.7) Thyroid Stimulating Hormone (TSH) 1.86 uIU/mL (0.55-4.78) Urinalysis Test 10/04/24 06:51 Urine Color Yellow (Yellow) Urine Clarity Clear (Clear) Urine pH 6.0 (5.0-9.0) Urine Specific [place] > 1.050 (1.001-1.035) Urine Protein 1+ (Negative) H Urine Ketones Negative (Negative) Urine Blood Trace /uL (Negative) H Urine Nitrite Negative (Negative) Urine Bilirubin Negative (Negative) Urine Urobilinogen 2 mg/dL (Negative) H Urine Leukocyte Esterase Negative /uL (Negative) Urine RBC 4 /hpf (0 - 3) Urine Microscopic WBC 1 /HPF (0-3) Urine Squamous Epithelial Cells Few /hpf (<5) Urine Bacteria Few /hpf (None Seen) H Urine Hyaline Casts Few /lpf (0 - 2) Urine Mucus Few (None Seen) Urine Glucose Normal mg/dL (Normal) Microbiology Microbiology Date/Time Source Procedure Growth Status 10/05/24 13:04 Ascities Fluid Gram Stain - Final Resulted 10/05/24 13:04 Ascities Fluid Body Fluid Culture - Preliminary Resulted Assessment/Plan Assessment/Plan Ascites Chronic liver disease Polycystic liver disease Hepatomegaly Cardiomegaly Normocytic anemia Hyponatremia Hypertension Alcohol abuse Plan Paracentesis revealed bloody ascites fluid sent for analysis Stop the IV fluids Start IV furosemide and p.o. spironolactone GI consult Cytology on the ascites fluid Check tumor markers including alpha-fetoprotein and ferritin Full code Advance directives discussed for 18 minutes Multivitamins and folic acid and thiamine 10/06/2024: Monitor closely Continue Lasix IV Multivitamins GI consult on board Alpha-fetoprotein was normal Plan discussed with: Patient My Orders Orders - DAVID YOUNG MD Procedure Category Date Status Time Furosemide Injection PHA 10/05/24 In Process (Lasix Injection) 18:00 Thiamine Tab PHA 10/06/24 In Process 10:00 Folic Acid Tablet PHA 10/06/24 In Process 10:00 Multiple Vitamin PHA 10/06/24 In Process Tablet (Mvi Tab) 10:00 Date of Service: October 06, 2024 Billing Provider: DAVID YOUNG MD Common Visit Codes: [id number] INP/OBS CARE(HIGH) DAVID YOUNG MD October 06, 2024 10:48
[2024-10-06] MEDS ORDERED: FOLI-119 PO (18:20)
[2024-10-06] MEDS ORDERED: FURO1TAB33 PO (18:20)
[2024-10-06] MEDS ORDERED: MULTTAB99 PO (18:20)
[2024-10-06] MEDS ORDERED: THIA100T10 PO (18:20)
[2024-10-06] MEDS ORDERED: SPIR25TA PO (18:20)
--- NOTE | 2024-10-07 12:38 | DVHSR ---
APPROVED REPORT EXAM: Two-dimensional and M-mode echocardiogram with Doppler and color Doppler. Blood Pressure: 134/79 mmHg INDICATION Cardiomegaly RISK FACTORS Obesity: Height: 6'0", Weight: 278 DIMENSIONS LVDd4.2 (3.8-5.7cm)LA (2D)4.3 (1.9-4.0cm)Aortic Root3.9 (2.0-3.7cm) LVDs2.6 (2.5-4.0cm)LA (MM) (1.9-4.0cm)Aortic Cusp Exc2.3 (1.5-2.0cm) EF (%) 71.0 (55-70%)Rt. Atrium4.6 (1.9-4.0cm)Asc. Aorta cm IVSd1.5 (0.7-1.1cm)RV (D) (1.8-2.4cm) PWd1.3 (0.7-1.1cm) Mitral Valve MitralMitral Stenosis E wave0.78m/sMV Mean GR.mmHg A wave0.86m/sMV Peak GR.mmHg E/A ratio0.92D MVAcm2 DECEL [id number] 1/2 Tim[place] Aortic Valve Aortic ValveAortic Stenosis V11.41m/Cuca Mean GR.4mmHg V21.32m/Cuca Peak GR.7mmHg LVOT Diameter2.4 (1.8-2.4cm)Doppler AVA4.83cm2 Pulmonic Valve V21.42m/s Other Information Technically limited study due to body habitus. Conclusion lvef 70% moderate LVH small LV cavity hyperdynamic LV normal rv function left atrium enlarged no severe valve abnormalities noted
[2024-10-07 13:07] LABS: Protein, Body Fluid 11.3 g/dL (.)
--- NOTE | 2024-10-11 21:45 | DVHDS2 ---
Discharge Summary Date of Admission October 04, 2024 at 14:56 Date of Discharge: October 06, 2024 Labs/Diagnostic Data: Laboratory Results Test 10/06/24 07:26 10/05/24 14:06 10/05/24 13:04 10/05/24 06:54 White Blood Count 5.1 10^3/uL (4.4-10.8) Red Blood Count 2.43 10^6/uL (4.5-5.90) Hemoglobin 7.7 g/dL (13.5-17.5) Hematocrit 22.6 % (41.0-53.0) Mean Corpuscular Volume 92.9 fL (80.0-100.0) Mean Corpuscular Hemoglobin 31.8 pg (28.0-32.0) Mean Corpuscular Hemoglobin Concent 34.2 g/dL (32.0-36.0) Red Cell Distribution Width 13.2 % (11.8-14.3) Platelet Count 382 10^3/uL (140-450) Mean Platelet Volume 6.9 fL (6.9-10.8) Neutrophils (%) (Auto) 67.9 % (37.0-80.0) Lymphocytes (%) (Auto) 19.3 % (10.0-50.0) Monocytes (%) (Auto) 11.8 % (0.0-12.0) Eosinophils (%) (Auto) 0.4 % (0.0-7.0) Basophils (%) (Auto) 0.6 % (0.0-2.0) Neutrophils # (Auto) 3.5 10 ^3/uL (1.6-8.6) Lymphocytes # (Auto) 1.0 10 ^3/uL (0.4-5.4) Monocytes # (Auto) 0.6 10 ^3/uL (0-1.3) Eosinophils # (Auto) 0 10 ^3/uL (0-0.8) Basophils # (Auto) 0 10 ^3/uL (0-0.2) Nucleated Red Blood Cells 0.0 % Prothrombin Time 12.0 sec (9.3-11.8) Prothrombin Time INR 1.15 (0.9-1.15) Activated Partial Thromboplast Time 25.8 SEC (24.5-34.5) Sodium Level 137 mmol/L (136-145) Potassium Level 3.7 mmol/L (3.5-5.1) Chloride Level 102 mmol/L (98-107) Carbon Dioxide Level 26 mmol/L (20-31) Anion Gap 9 (5-15) Blood Urea Nitrogen 15 mg/dL (9-23) Creatinine 1.20 mg/dL (0.700-1.30) Glomerular Filtration Rate Calc 71 mL/min (>90) BUN/Creatinine Ratio 12.5 (10.0-20.0) Serum Glucose 101 mg/dL (74-106) Hemoglobin A1c 5.4 % A1C (<5.7) Calcium Level 9.4 mg/dL (8.7-10.4) Magnesium Level 2.1 mg/dL (1.6-2.6) Total Bilirubin 1.0 mg/dL (0.2-1.0) Aspartate Amino Transferase (AST) 23 U/L (13-40) Alanine Aminotransferase (ALT) 14 U/L (7-40) Alkaline Phosphatase 53 U/L (46-116) Total Protein 7.5 g/dL (5.7-8.2) Albumin 4.1 g/dL (3.2-4.8) Triglycerides Level 75 mg/dL (< 150) Cholesterol Level 107 mg/dL (< 200) LDL Cholesterol 61 mg/dL (< 100) HDL Cholesterol 26 mg/dL (40-59) Lipase 51 U/L (12-53) Thyroid Stimulating Hormone (TSH) 1.86 uIU/mL (0.55-4.78) Ammonia < 10 umol/L (11-32) Tumor Marker Alpha Fetoprotein 2.6 ng/mL (0.0-8.4) Body Fluid Source Peritoneal fluid Body Fluid pH 8.0 Body Fluid WBC (Manual) 1544 CUMM (0-200) Body Fluid RBC (Manual) [id number] CUMM (0-2000) Body Fluid Mononuclear Cells 69 % Body Fluid Polymorphonuclear Cells 31 % (0-25) Body Fluid Glucose 23 mg/dL (.) Body Fluid Total Protein 11.3 g/dL (.) Ferritin 198.8 ng/mL (22-322) Test 10/04/24 06:51 10/04/24 03:36 Urine Color Yellow (Yellow) Urine Clarity Clear (Clear) Urine pH 6.0 (5.0-9.0) Urine Specific [place] > 1.050 (1.001-1.035) Urine Protein 1+ (Negative) Urine Ketones Negative (Negative) Urine Blood Trace /uL (Negative) Urine Nitrite Negative (Negative) Urine Bilirubin Negative (Negative) Urine Urobilinogen 2 mg/dL (Negative) Urine Leukocyte Esterase Negative /uL (Negative) Urine RBC 4 /hpf (0 - 3) Urine Microscopic WBC 1 /HPF (0-3) Urine Squamous Epithelial Cells Few /hpf (<5) Urine Bacteria Few /hpf (None Seen) Urine Hyaline Casts Few /lpf (0 - 2) Urine Mucus Few (None Seen) Urine Glucose Normal mg/dL (Normal) Hepatitis A IgM Antibody Negative Hepatitis B Surface Antigen Negative (Negative) Hepatitis B Core IgM Antibody Negative (Negative) Hepatitis C Antibody Negative (Negative) Other Laboratory Tests 10/06/24 07:26 Brief Hx & Hospital Course: Final diagnoses: Ascites Chronic liver disease Polycystic liver disease Hepatomegaly Cardiomegaly Normocytic anemia Hyponatremia Hypertension Alcohol abuse 54-year-old male with a history of polycystic liver disease, hepatomegaly, hypertension, morbid obesity, alcohol abuse comes with chief complaint of increased abdominal swelling and pain Ultrasound of the abdomen showed ascites and bilateral renal cysts CT scan of the abdomen showed ascites and hepatomegaly with numerous cysts and bilateral inguinal hernias Chest x-ray shows cardiomegaly Paracentesis was done with 8.2 L bloody fluid drained Patient is a heavy alcohol drinker Echo was negative Tumor markers negative GI recommended conservative management Patient was advised to quit ETOH F/U with PCP and GI outpatient Condition at Discharge: Stable Final Diagnosis/Problems List polycystic liver disease ascites alcoholic liver disease Discharge Disposition: Home SNF Discharge Will this Physician continue t: No Discharge Instruct/Medications Diet: Cardiac 2g Na,low cholest Activity: No Restrictions, As Tolerated Follow Up/Referral: PCP COURTNEY Medications: Aldactone 25 mg qd Lasix 20 mg qd Thiamine 100 mg qd Folic acid 1 mg qd MVI qd Discharge Statement: "Patient was advised to return to the ER or call 911 if any headaches, dizziness, shortness of breath, chest pain, abdominal pain, bleeding, fevers, or worsening of medical condition. Patient was counseled about treatment plan, medications, possible side effects, patientverbalized understanding. All questions were answered to the best of my ability. This discharge took greater then 30 minutes in planning, reviewing documentation, counseling the patient, and discussing with other team members." ASSESSMENT ASSESSMENT Assessment polycystic liver disease ascites alcoholic liver disease Date of Service: October 06, 2024 Billing Provider: DAVID YOUNG MD Common Visit Codes: [id number] DISCH DAY >30min DAVID YOUNG MD October 11, 2024 21:45
== END 2024-10-06 19:13 | disposition home or self-care (01) | DRG 442 ==
LOC: ER 03:20 → OVERFLOW 14:56 → TELE-WESTW 18:40
PROVIDERS: ADMIT Internal Medicine Geriatric Medicine; ATTEND Internal Medicine Geriatric Medicine
PROC: 0W9G3ZZ Drainage of Peritoneal Cavity, Percutaneous Approach (ICD-10-PCS; principal; 2024-10-05)
DX: K76.89 Other specified diseases of liver (principal); E87.1 Hypo-osmolality and hyponatremia; R18.8 Other ascites; Q44.6 Cystic disease of liver; R16.0 Hepatomegaly, not elsewhere classified; D64.9 Anemia, unspecified; E87.6 Hypokalemia; F10.10 Alcohol abuse, uncomplicated; E66.01 Morbid (severe) obesity due to excess calories; Z68.21 Body mass index [BMI] 21.0-21.9, adult; I11.9 Hypertensive heart disease without heart failure; N28.1 Cyst of kidney, acquired; K40.20 Bilateral inguinal hernia, without obstruction or gangrene, not specified as recurrent
CPT/HCPCS: 36415; 49083; 71045; 74177; 76705; 76942; 80053; 80061; 80074; 81001; 82105; 82140; 82728; 83036; 83690; 83735; 83986; 84443; 85025; 85610; 85730; 86850; 86900; 86901; 87205; 89051; 93306; 96361; 96374; G0378

== ENCOUNTER 2025-02-20 02:53 | Inpatient (IN) | payer MEDICAID ==
[~2025-02-20] VITALS: Ht 185.4 cm; Wt 106.5 kg
[~2025-02-20 02:53] MED LIST: DOCU-94 PO; FER325T PO; FOLI-119 PO; FURO1TAB33 PO; MULTTAB99 PO; SENN-58 PO; SPIR25TA PO; THIA100T10 PO; TRAZ-227 PO
--- NOTE | 2025-02-20 03:29 | ED.PDOC ---
GI ASSESSMENT HPI Comments 64-year-old male with a known history of previously alcohol use, possible alcoholic liver disease, polycystic liver disease presented to the hospital with intractable abdominal pain found to have 1. Abdominal distention with a minimal ascites, 2. Severe anemia status post blood transfusion, 3. Acute kidney injury suspected secondary to vasomotor nephropathy, 4. Polycystic liver disease, 5. Previous history of alcoholism. Patient was seen and admitted here last October, advised follow-up with [facility] where a liver specialist is at. Patient claims he has abdomen last drain was October. Patient coming in again for severe abdominal distention and diffuse pain. REVIEW OF SYSTEMS: General: No fever, no chills, or fatigue HEENT: No sore throat, no earache, no congestion, no neck pain. Cardiac: No chest pain. No palpitations. Lungs: No shortness of breath, no cough. GI: No nausea, no vomiting, no diarrhea, no constipation, (+) abdominal pain, (+) abdominal distention : No dysuria, frequency, or urgency. No hematuria. Musculoskeletal: No joint pain , no joint swelling, no extremity edema. Skin: No rash, no itching. Neuro: No headache, no dizziness, no weakness EXAM: General: Awake, alert and oriented. No acute distress. Skin: Skin in warm, dry and intact. Appropriate color for ethnicity. HEENT: The head is normocephalic and atraumatic. Conjunctivae are clear without exudates or hemorrhage. Sclera is non-icteric. EOM are intact. No signs of nystagmus. Eyelids are normal in appearance without swelling or lesions. Oral mucosa is pink and moist Neck: The neck is supple with normal range of motion. No JVD. Cardiac: Heart rate and rhythm are normal. No murmurs, gallops, or rubs are auscultated. Respiratory: No signs of respiratory distress. Lung sounds are clear in all lobes bilaterally without rales, rhonchi, or wheezes. Abdominal: Abdomen is soft, distended and protuberant. Generally tender to palpation. Prominent abdominal wall veins. Bowel sounds are present and normoactive in all four quadrants. Extremities: Upper and lower extremities are atraumatic in appearance without deformity or edema. Neurological: The patient is awake, alert and oriented to person, place, and time with normal speech. Speech is clear. There is no facial asymmetry. Psychiatric: Appropriate mood and affect. Good judgement and insight Chief Complaint: Abdominal Pain Time Seen by MD: 03:27 Reviewed Notes: Nurses Notes Allergies: Coded Allergies: NO KNOWN ALLERGIES (Unverified , 10/04/24) Home Meds Active Scripts Trazodone Hcl (Trazodone Hcl) 50 Mg Tab, 50 MG PO QHSP PRN, #10 TAB Prov:JANE CASILLAS MD 11/07/24 Senna (Senokot) 8.6 Mg Tab, 1 TAB PO BID PRN, #20 TAB Prov:JANE CASILLAS MD 11/07/24 Docusate Sodium (Colace) 100 Mg Cap, 1 CAP PO BID PRN, #30 CAP Prov:JANE CASILLAS MD 11/07/24 Ferrous Sulfate (FERROUS SULFATE) 325 Mg Tb, 1 TAB PO BID, #60 TAB 3 Refills Prov:JANE CASILLAS MD 11/07/24 Folic Acid (Folic Acid) 1 Mg Tab, 1 MG PO DAILY for 30 Days, #30 TAB Prov:DAVID YOUNG MD 10/06/24 Multiple Vitamin (Mvi Tab) 1 Tab Tb, 1 TAB PO DAILY for 30 Days, #30 TAB Prov:DAVID YOUNG MD 10/06/24 Thiamine Hcl (VITAMIN B-1) 100 Mg Tb, 100 MG PO DAILY for 30 Days, #30 TAB Prov:DAVID YOUNG MD 10/06/24 Spironolactone (Aldactone) 25 Mg Tab, 1 TAB PO DAILY, #30 TAB 5 Refills Prov:DAVID YOUNG MD 10/06/24 Furosemide (Lasix) 20 Mg Tb, 1 TAB PO DAILY, #30 TAB 5 Refills Prov:DAVID YOUNG MD 10/06/24 Information Source: Patient, Spouse Mode of Arrival: Ambulatory Past Medical History PAST MEDICAL HISTORY: CKF, HTN, Liver Family History Family History: Reviewed,noncontributory to illness Social History Smoker: Non-Smoker Alcohol: Sober Drugs: Denies Drug Use Lives In: Home Was a procedure done? Was a procedure done?: No GI differential Dx Differential Diagnosis: Diverticular disease, Gastritis/PUD, Gastroenteritis, Hepatitis, Other (Polycystic liver disease) X-Ray, Labs, Meds, VS Vital Signs Date Time Temp Pulse Resp B/P (MAP) Pulse Ox O2 Delivery O2 Flow Rate FiO2 02/20/25 02:55 97.1 91 18 149/81 96 97.1 Lab Test 02/20/25 03:39 Range/Units White Blood Count 5.7 4.4-10.8 10^3/uL Red Blood Count 3.93 L 4.5-5.90 10^6/uL Hemoglobin 10.5 L 13.5-17.5 g/dL Hematocrit 32.5 L 41.0-53.0 % Mean Corpuscular Volume 82.7 80.0-100.0 fL Mean Corpuscular Hemoglobin 26.8 L 28.0-32.0 pg Mean Corpuscular Hemoglobin Concent 32.4 32.0-36.0 g/dL Red Cell Distribution Width 18.1 H 11.8-14.3 % Platelet Count 387 140-450 10^3/uL Mean Platelet Volume 7.3 6.9-10.8 fL Neutrophils (%) (Auto) 54.5 37.0-80.0 % Lymphocytes (%) (Auto) 30.4 10.0-50.0 % Monocytes (%) (Auto) 11.5 0.0-12.0 % Eosinophils (%) (Auto) 2.1 0.0-7.0 % Basophils (%) (Auto) 1.5 0.0-2.0 % Neutrophils # (Auto) 3.1 1.6-8.6 10 ^3/uL Lymphocytes # (Auto) 1.7 0.4-5.4 10 ^3/uL Monocytes # (Auto) 0.7 0-1.3 10 ^3/uL Eosinophils # (Auto) 0.1 0-0.8 10 ^3/uL Basophils # (Auto) 0.1 0-0.2 10 ^3/uL Nucleated Red Blood Cells 0.0 % Prothrombin Time 11.9 H 9.3-11.8 sec Prothrombin Time INR 1.14 0.9-1.15 Sodium Level 142 136-145 mmol/L Potassium Level 3.6 3.5-5.1 mmol/L Chloride Level 104 98-107 mmol/L Carbon Dioxide Level 27 20-31 mmol/L Anion Gap 11 5-15 Blood Urea Nitrogen 15 9-23 mg/dL Creatinine 1.28 0.700-1.30 mg/dL Glomerular Filtration Rate Calc 66 >90 mL/min BUN/Creatinine Ratio 11.7 10.0-20.0 Serum Glucose 94 74-106 mg/dL Calcium Level 9.4 8.7-10.4 mg/dL Total Bilirubin 0.6 0.2-1.0 mg/dL Aspartate Amino Transferase (AST) 22 13-40 U/L Alanine Aminotransferase (ALT) 14 7-40 U/L Alkaline Phosphatase 94 46-116 U/L Total Protein 8.6 H 5.7-8.2 g/dL Albumin 4.4 3.2-4.8 g/dL Lipase 64 H 12-53 U/L Exam: CT CT AB PEL WO CON-NO ORAL OR IV History: Abd pain, distention, hxof polycystic liver , kidney mass Comparison Study: CT CT AB PEL WO CON-NO ORAL OR IV on DOS: 11/05/24, US ABDOMEN LIMITED on DOS: 10/04/24, CT CT AB PEL WITH IV CON ONLY on DOS: 10/04/24 Technique: Multidetector spiral CT of the abdomen was performed from lung bases to pubic symphysis. Imaging was performed without IV contrast. Axial, coronal and sagittal multiplanar reformats were obtained from the axial data set by the technologist. Radiation Dose : 1. Abdomen/Pelvis: CTDIvol 23.26 mGy, DLP 2746.32 mGy*cm. Findings: Evaluation of solid organs is limited due to lack of intravenous contrast use. Markedly protuberant abdomen redemonstrated. Lung Bases: No acute or significant lung base finding. Normal heart size. No pleural or pericardial effusion. Liver: Once again, innumerable hepatic cysts with some rim calcifications. The liver is commensurately enlarged. Gallbladder and Biliary Tree: Unremarkable Spleen: Unremarkable Pancreas: The pancreas is grossly normal in appearance. Adrenal Glands: Unremarkable Kidneys: Kidneys are grossly normal without calculi or hydronephrosis. Bladder: Grossly unremarkable for degree of distention. Bowel: The stomach is grossly normal in appearance. Diverticulosis coli without CT evidence of acute diverticulitis. Small bowel and colon are normal in caliber and distribution. The appendix is not visualized; however, no secondary findings of acute appendicitis identified. Ascites: Unchanged moderate abdominopelvic ascites. Lymphadenopathy: No mesenteric, retroperitoneal or periportal lymphadenopathy. Abdominal Wall and Mesentery: Unremarkable. Vasculature: The visualized abdominal aorta is normal in size and caliber. Evaluation of abdominal and pelvic vessels is limited due to lack of intravenous contrast. Pelvic Organs: Unremarkable Musculoskeletal: No aggressive focal bony lesions, acute fractures or dislocation. IMPRESSION: 1. Stable appearing Hepatomegaly and polycystic liver disease with moderate abdominopelvic ascites. The abdomen is persistently protuberant. 2. Stable moderate abdominopelvic ascites. 3. Diverticulosis coli without CT evidence of acute diverticulitis. Radiation optimization: All CT scans at this facility use at least one of these dose optimization techniques: automated exposure control mA and/or kV adjustment per patient size (includes targeted exams where dose is matched to clinical indication) or iterative reconstruction. Time of 1ST Reevaluation: 03:28 Reevaluation 1ST: Unchanged Patient Education/Counseling: Other (Need for admission) Family Education/Counseling: Other (You for admission) SEPSIS Sepsis Screen Date sepsis recognized/suspect: Feb 20, 2025 Time Sepsis recognized/suspect: 299 Recent Procedure: No On Antibiotic Therapy: No Respiratory Rate >20: No Heart Rate >90: No Temp<36 C (96.8 F) or >38.3 C: No SBP <90 or MAP <65 mmHG: No New Acute Mental Status Change: No Is the patient on CPAP, BIPAP,: No Physician Orders Ct Ab Pel Wo Con-No Oral Or Iv (02/20/25 03:24) Saline Lock (02/20/25 04:18) Admit (02/20/25 05:28) Code Status (02/20/25 05:28) Vital Signs .PER UNIT PROTOCOL (02/20/25 05:28) Review Orders With Adm.Md (02/20/25 05:28) Npo (Nothing By Mouth) Diet (02/20/25 Breakfast) Notify Md Of Changes From Base (02/20/25 05:28) Advance Directive (02/20/25 05:28) Chest Two Views Routine (02/21/25 04:00) Patient Condition (02/20/25 05:28) Allergies (02/20/25 05:28) Ondansetron Hcl (Zofran) (02/20/25 05:30) Morphine Sulfate Injection (02/20/25 05:30) Enoxaparin Sodium (Lovenox) (02/20/25 10:00) Oxygen By Nasal Cannula (02/20/25 05:28) Stat Ekg For Chest Pain (02/20/25 05:28) Notify Of Changes From Base (02/20/25 05:28) Vulnerability Researcher For 24 Hours (02/20/25 05:28) Emergency Dysrhythmia Protocol (02/20/25 05:28) Rhythm Strips Once Every Shift (02/20/25 05:28) Vitamin D, 25-Hydroxy (02/20/25 05:31) Vitamin B12 (02/20/25 05:31) Urinalysis (02/20/25 05:31) Thyroid Stimulating Hormone (02/20/25 05:31) Phosphorus (02/20/25 05:31) Magnesium (02/20/25 05:31) Lipid Panel (02/20/25 05:31) Lactic Acid W/ Reflex Order (02/20/25 05:31) Hemoglobin A1c (02/20/25 05:31) Drug Screen (02/20/25 05:31) Ammonia (02/20/25 05:31) Blood Culture (02/20/25 05:31) Urine Bacterial Culture (02/20/25 05:31) Hiv 1&2 Antibody (02/20/25 05:34) Treponema Pallidum Antibody (02/20/25 05:34) Acute Hepatitis Panel (02/20/25 05:34) Chlamydia/Gc Amplification (02/20/25 05:34) Vital Signs Date Time Temp Pulse Resp B/P (MAP) Pulse Ox O2 Delivery O2 Flow Rate FiO2 02/20/25 02:55 97.1 91 18 149/81 96 97.1 Laboratory Tests Test 02/20/25 03:39 White Blood Count 5.7 10^3/uL (4.4-10.8) Departure 1 Departure Time of Disposition: 04:21 Impression: Primary Impression: Ascites Additional Impressions: Abdominal pain Polycystic liver disease Anemia, unspecified Disposition: ADMITTED INPATIENT Condition: Stable Comments Patient admitted to hospitalist service for further treatment, evaluation and monitoring. Critical Care Note Critical Care Time?: No Stability Stability form required: No I personally scribed for GEOVANNY GARCES MD ([email or web address]) on 02/20/25 at 03:29. Electronically submitted by Moo Sinha ([email or web address]). I personally scribed for GEOVANNY GARCES MD ([email or web address]) on 02/20/25 at 04:18. Electronically submitted by Moo Sinha ([email or web address]). GEOVANNY GARCES MD Feb 20, 2025 03:29
[2025-02-20 03:54] LABS: Mean Corpuscular Hemoglobin 26.8 pg (28.0-32.0); Nucleated Red Blood Cells % 0.0 %
[2025-02-20 03:55] LABS: Hematocrit 32.5 % (41.0-53.0); Hemoglobin 10.5 g/dL (13.5-17.5); Mean Corpuscular Volume 82.7 fL (80.0-100.0)
[2025-02-20 04:10] LABS: INR 1.14 (0.9-1.15); Prothrombin Time 11.9 sec (9.3-11.8)
--- NOTE | 2025-02-20 04:16 | DVH ---
Exam: CT CT AB PEL WO CON-NO ORAL OR IV History: Abd pain, distention, hxof polycystic liver , kidney mass Comparison Study: CT CT AB PEL WO CON-NO ORAL OR IV on DOS: 11/05/24, US ABDOMEN LIMITED on DOS: 10/04/24 , CT CT AB PEL WITH IV CON ONLY on DOS: 10/04/24 Technique: Multidetector spiral CT of the abdomen was performed from lung bases to pubic symphysis. I maging was performed without IV contrast. Axial, coronal and sagittal multiplanar reformats were obta ined from the axial data set by the technologist. Radiation Dose : 1. Abdomen/Pelvis: CTDIvol 23.26 mGy, DLP 2746.32 mGy*cm. Findings: Evaluation of solid organs is limited due to lack of intravenous contrast use. Markedly protuberant a bdomen redemonstrated. Lung Bases: No acute or significant lung base finding. Normal heart size. No pleural or pericardial effusion. Liver: Once again, innumerable hepatic cysts with some rim calcifications. The liver is commensurate ly enlarged. Gallbladder and Biliary Tree: Unremarkable Spleen: Unremarkable Pancreas: The pancreas is grossly normal in appearance. Adrenal Glands: Unremarkable Kidneys: Kidneys are grossly normal without calculi or hydronephrosis. Bladder: Grossly unremarkable for degree of distention. Bowel: The stomach is grossly normal in appearance. Diverticulosis coli without CT evidence of acute diverticulitis. Small bowel and colon are normal in caliber and distribution. The appendix is not vis ualized; however, no secondary findings of acute appendicitis identified. Ascites: Unchanged moderate abdominopelvic ascites. Lymphadenopathy: No mesenteric, retroperitoneal or periportal lymphadenopathy. Abdominal Wall and Mesentery: Unremarkable. Vasculature: The visualized abdominal aorta is normal in size and caliber. Evaluation of abdominal a nd pelvic vessels is limited due to lack of intravenous contrast. Pelvic Organs: Unremarkable Musculoskeletal: No aggressive focal bony lesions, acute fractures or dislocation. IMPRESSION: 1. Stable appearing Hepatomegaly and polycystic liver disease with moderate abdominopelvic ascites. T he abdomen is persistently protuberant. 2. Stable moderate abdominopelvic ascites. 3. Diverticulosis coli without CT evidence of acute diverticulitis. Radiation optimization: All CT scans at this facility use at least one of these dose optimization munira hniques: automated exposure control mA and/or kV adjustment per patient size (includes targeted exam s where dose is matched to clinical indication) or iterative reconstruction.
[2025-02-20 05:01] LABS: Alanine Aminotransferase 14 U/L (7-40); Albumin 4.4 g/dL (3.2-4.8); Alkaline Phosphatase 94 U/L (46-116); Anion Gap 11 (5-15); BUN/Creatinine Ratio 11.7 (10.0-20.0); Blood Urea Nitrogen 15 mg/dL (9-23); Calcium 9.4 mg/dL (8.7-10.4); Carbon Dioxide 27 mmol/L (20-31); Chloride 104 mmol/L (98-107); Glucose 94 mg/dL (74-106); Potassium 3.6 mmol/L (3.5-5.1); Sodium 142 mmol/L (136-145)
[2025-02-20 05:02] LABS: Bilirubin, Total 0.6 mg/dL (0.2-1.0); Lipase 64 U/L (12-53); Total Protein 8.6 g/dL (5.7-8.2)
--- NOTE | 2025-02-20 05:36 | DVHHPRES ---
History of Present Illness Resident Creating Document: PAUL SARAH History of Present Illness Fernando Chapman is a 54-year-old male patient who presents to the ED with chief complaint of diffuse abdominal pain and abdominal distention with occurred progressively for the past week and got worse today, prompting his visit to the ED. patient has history of polycystic liver disease (questionable alcoholic etiology), he is currently in the liver transplant list of [facility], he has been off of alcohol for the past 10 years. He denies fever, chills or any other associated symptoms Past medical history: Hypertension, liver cirrhosis secondary to polycystic liver disease questionable etiology alcoholic (per patient he has not been drinking alcohol for the past 10 years, he drank heavily since age [age], and then only drank two beers a day), kidney cysts, CKD stage II-IIIa Surgical history: Right inguinal hernia repair and umbilical hernia repair , multiple paracentesis last one in October 2024. Family history: Noncontributory Social history: Lives in [place] with (next of kin). Denies current tobacco, alcohol and other drug abuse. He has not been drinking alcohol for the past 10 years. Allergies: Denies Home medication: Trazodone, senna, docusate, ferrous sulfate, folic acid, multivitamin, thiamine, spironolactone 25 mg p.o. daily, furosemide 20 mg p.o. daily Patient seen and examined at bedside. Still complains of abdominal distention abdominal pain. Planning on completing paracentesis at this time. Past Medical History Per HPI Past Surgical History Per HPI Family History Per HPI Past Social History Per HPI Review of Systems Review of Systems Per HPI Allergies: Coded Allergies: NO KNOWN ALLERGIES (Unverified , 10/04/24) Exam Vital Signs Vital Signs Date Time Temp Pulse Resp B/P (MAP) Pulse Ox O2 Delivery O2 Flow Rate FiO2 02/20/25 02:55 97.1 91 18 149/81 96 97.1 Exam Patient lying in bed, in no acute distress General: Lucid, cachectic, afebrile, mucosae are moist Cardiovascular: Normal S1 and S2. No murmurs, gallops or rubs Respiratory: Normal ventilation mechanics. Clear lung sounds on auscultation Abdomen: Tense, distended, diffuse tenderness to superficial palpation, hepatomegaly, reduced bowel sounds MSK/skin: Mobilizes 4 limbs. Skin is dry and warm Neurological: Oriented in 3 spheres. No motor no sensitive deficits. Pupils are isocoric and reactive Labs/Xrays Labs Test 02/20/25 03:39 Range/Units White Blood Count 5.7 4.4-10.8 10^3/uL Red Blood Count 3.93 L 4.5-5.90 10^6/uL Hemoglobin 10.5 L 13.5-17.5 g/dL Hematocrit 32.5 L 41.0-53.0 % Mean Corpuscular Volume 82.7 80.0-100.0 fL Mean Corpuscular Hemoglobin 26.8 L 28.0-32.0 pg Mean Corpuscular Hemoglobin Concent 32.4 32.0-36.0 g/dL Red Cell Distribution Width 18.1 H 11.8-14.3 % Platelet Count 387 140-450 10^3/uL Mean Platelet Volume 7.3 6.9-10.8 fL Neutrophils (%) (Auto) 54.5 37.0-80.0 % Lymphocytes (%) (Auto) 30.4 10.0-50.0 % Monocytes (%) (Auto) 11.5 0.0-12.0 % Eosinophils (%) (Auto) 2.1 0.0-7.0 % Basophils (%) (Auto) 1.5 0.0-2.0 % Neutrophils # (Auto) 3.1 1.6-8.6 10 ^3/uL Lymphocytes # (Auto) 1.7 0.4-5.4 10 ^3/uL Monocytes # (Auto) 0.7 0-1.3 10 ^3/uL Eosinophils # (Auto) 0.1 0-0.8 10 ^3/uL Basophils # (Auto) 0.1 0-0.2 10 ^3/uL Nucleated Red Blood Cells 0.0 % Prothrombin Time 11.9 H 9.3-11.8 sec Prothrombin Time INR 1.14 0.9-1.15 Sodium Level 142 136-145 mmol/L Potassium Level 3.6 3.5-5.1 mmol/L Chloride Level 104 98-107 mmol/L Carbon Dioxide Level 27 20-31 mmol/L Anion Gap 11 5-15 Blood Urea Nitrogen 15 9-23 mg/dL Creatinine 1.28 0.700-1.30 mg/dL Glomerular Filtration Rate Calc 66 >90 mL/min BUN/Creatinine Ratio 11.7 10.0-20.0 Serum Glucose 94 74-106 mg/dL Calcium Level 9.4 8.7-10.4 mg/dL Total Bilirubin 0.6 0.2-1.0 mg/dL Aspartate Amino Transferase (AST) 22 13-40 U/L Alanine Aminotransferase (ALT) 14 7-40 U/L Alkaline Phosphatase 94 46-116 U/L Total Protein 8.6 H 5.7-8.2 g/dL Albumin 4.4 3.2-4.8 g/dL Lipase 64 H 12-53 U/L SEPSIS Sepsis Screen Date sepsis recognized/suspect: Feb 20, 2025 Time Sepsis recognized/suspect: 299 Recent Procedure: No On Antibiotic Therapy: No Respiratory Rate >20: No Heart Rate >90: No Temp<36 C (96.8 F) or >38.3 C: No SBP <90 or MAP <65 mmHG: No New Acute Mental Status Change: No Is the patient on CPAP, BIPAP,: No Physician Orders Ct Ab Pel Wo Con-No Oral Or Iv (02/20/25 03:24) Saline Lock (02/20/25 04:18) Admit (02/20/25 05:28) Code Status (02/20/25 05:28) Vital Signs .PER UNIT PROTOCOL (02/20/25 05:28) Review Orders With Adm. (02/20/25 05:28) Npo (Nothing By Mouth) Diet (02/20/25 Breakfast) Notify Md Of Changes From Base (02/20/25 05:28) Advance Directive (02/20/25 05:28) Chest Two Views Routine (02/21/25 04:00) Patient Condition (02/20/25 05:28) Allergies (02/20/25 05:28) Ondansetron Hcl (Zofran) (02/20/25 05:30) Morphine Sulfate Injection (02/20/25 05:30) Enoxaparin Sodium (Lovenox) (02/20/25 10:00) Oxygen By Nasal Cannula (02/20/25 05:28) Stat Ekg For Chest Pain (02/20/25 05:28) Notify Md Of Changes From Base (02/20/25 05:28) Talcer For 24 Hours (02/20/25 05:28) Emergency Dysrhythmia Protocol (02/20/25 05:28) Rhythm Strips Once Every Shift (02/20/25 05:28) Vitamin D, 25-Hydroxy (02/20/25 05:31) Vitamin B12 (02/20/25 05:31) Urinalysis (02/20/25 05:31) Thyroid Stimulating Hormone (02/20/25 05:31) Phosphorus (02/20/25 05:31) Magnesium (02/20/25 05:31) Lipid Panel (02/20/25 05:31) Lactic Acid W/ Reflex Order (02/20/25 05:31) Hemoglobin A1c (02/20/25 05:31) Drug Screen (02/20/25 05:31) Ammonia (02/20/25 05:31) Blood Culture (02/20/25 05:31) Urine Bacterial Culture (02/20/25 05:31) Hiv 1&2 Antibody (02/20/25 05:34) Treponema Pallidum Antibody (02/20/25 05:34) Acute Hepatitis Panel (02/20/25 05:34) Chlamydia/Gc Amplification (02/20/25 05:34) Vital Signs Date Time Temp Pulse Resp B/P (MAP) Pulse Ox O2 Delivery O2 Flow Rate FiO2 02/20/25 02:55 97.1 91 18 149/81 96 97.1 Laboratory Tests Test 02/20/25 03:39 White Blood Count 5.7 10^3/uL (4.4-10.8) Assessment/Plan Assessment/Plan Decompensated liver cirrhosis with ascites Probable spontaneous bacterial peritonitis Polycystic liver disease (questionable ethanol etiology)- planning liver transplant (on [facility] list) Pancreatitis Completed abdomen and pelvis CT, showed stable liver polycystic disease and stable ascites. Planning on completing paracentesis Once completing paracentesis, we will initiate empiric IV antibiotic (ceftriaxone and metronidazole) Lipase is 64. We will ordered new lipase Normocytic anemia probably secondary to chronic disease disorder Ferritin approximately 200. No need for iron at this time. Chronic kidney disease stage II-IIIb Multiple kidney cysts Monitor with labs History of ethanol abuse Quit approximately 10 years ago Counseled strongly on importance of continuing cessation. Goals of care discussed with patient for over18 minutes: Full code status Discussed plan with Dr. Andrade, patient and nurses: Planning on completing paracentesis and eventually initiate empiric IV antibiotic with suspicion of spontaneous bacterial peritonitis. Patient has poor prognosis due to comorbidities. He follows up with [facility]endo[facility], planning liver transplant (he is on the transplant list already) Plan discussed with: Patient, Spouse, Other (Nurses) My Orders Orders - PAUL SARAH RESIDENT Procedure Category Date Status Time Admit ADMIT 02/20/25 Transmitted 05:28 Code Status CODE 02/20/25 Transmitted 05:28 Vital Signs [facility] 02/20/25 In Process 05:28 Review Orders With [facility] 02/20/25 In Process Adm. 05:28 Npo (Nothing By DIET 02/20/25 Transmitted Mouth) Diet Breakfast Notify Md Of Changes [facility] 02/20/25 In Process From Base 05:28 Advance Directive [facility] 02/20/25 In Process 05:28 Chest Two Views XY 02/21/25 Logged Routine 04:00 Patient Condition ORDERS 02/20/25 Transmitted 05:28 Allergies [facility] 02/20/25 In Process 05:28 Ondansetron Hcl PHA 02/20/25 In Process (Zofran) 05:30 Morphine Sulfate PHA 02/20/25 In Process Injection 05:30 Enoxaparin Sodium PHA 02/20/25 In Process (Lovenox) 10:00 Oxygen By Nasal RT 02/20/25 Transmitted Cannula 05:28 Stat Ekg For Chest [facility] 02/20/25 In Process Pain 05:28 Notify Md Of Changes [facility] 02/20/25 In Process From Base 05:28 Talcer For [facility] 02/20/25 In Process 24 Hours 05:28 Emergency Dysrhythmia [facility] 02/20/25 In Process Protocol 05:28 Rhythm Strips Once [facility] 02/20/25 In Process Every Shift 05:28 Vitamin D, 25-Hydroxy LAB 02/20/25 Logged 05:31 Vitamin B12 LAB 02/20/25 Logged 05:31 Urinalysis LAB 02/20/25 Logged 05:31 Thyroid Stimulating LAB 02/20/25 Logged Hormone 05:31 Phosphorus LAB 02/20/25 Logged 05:31 Magnesium LAB 02/20/25 Logged 05:31 Lipid Panel LAB 02/20/25 Logged 05:31 Lactic Acid W/ Reflex LAB 02/20/25 Logged Order 05:31 Hemoglobin A1c LAB 9/21/25 Logged 05:31 Drug Screen LAB 02/20/25 Logged 05:31 Ammonia LAB 02/20/25 Logged 05:31 Blood Culture [facility] 02/20/25 Logged 05:31 Urine Bacterial [facility] 02/20/25 Logged Culture 05:31 Hiv 1&2 Antibody LAB 02/20/25 Logged 05:34 Treponema Pallidum LAB 02/20/25 Logged Antibody 05:34 Acute Hepatitis Panel LAB 02/20/25 Logged 05:34 Chlamydia/Gc LAB 02/20/25 Logged Amplification 05:34 Date of Service: Feb 20, 2025 Billing Provider: DWIGHT ANDRADE MD Common Visit Codes: [id number]-[id number] INP/OBS CARE (HIGH) Secondary Visit Codes: [id number] CARE PLAN 30 MINUTES PAUL SARAH RESIDENT Feb 20, 2025 05:36
[2025-02-20 06:46] LABS: Triglycerides 60.0 mg/dL (< 150)
[2025-02-20 06:47] LABS: Magnesium 2.1 mg/dL (1.6-2.6)
[2025-02-20 06:48] LABS: Cholesterol 141.0 mg/dL (< 200); HDL Cholesterol 43.0 mg/dL (40-59)
[2025-02-20 07:30] VITALS: PULSE 85; RESP 14; O2SAT 95
[2025-02-20] MEDS: ALBUMIN 25% 100 ML IV SCH (07:52)
--- NOTE | 2025-02-20 08:10 | DVHNC2 ---
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 Nature of the procedure or treatment and who will perform the procedure or treatment. b. Necessity for procedure and the possible benefits. c. Risks and complications (most common and serious). d. Alternative treatments and the risks, benefits and side effects of each (including no treatment). e. Likelihood of the patient achieving his/her goals without this procedure and surgery treatment. f. Problems that might occur during the recuperation. g. Conflicts of interest, if any PROCEDURE SUMMARY: A time-out was performed. My hands were washed immediately prior to the procedure. I wore a surgical cap, mask with protective eyewear, sterile gown and sterile gloves throughout the procedure. The area was cleansed and draped i n usual sterile fashion using chlorhexidine scrub. Anesthesia was achieved with 1% lidocaine. The LLQ of the abdomen was prepped and draped in a sterile fashion using chlorhexidine scrub. 1% lidocaine was used to numb the skin, soft tissue and peritoneum. The paracentesis catheter was inserted and advanced with negative pressure until hollie colored fluid was aspirated. Approximately 60 mL of ascitic fluid was collected and sent for laboratory analysis. The catheter was then connected to the vaccutainer and 10 liters of additional ascitic fluid were drained. The catheter was removed and no leaking was noted. A bandaid was placed over the puncture wound. The patient tolerated the procedure well without any immediate complications. Estimated blood loss was 5cc. Date of Service: Feb 20, 2025 Billing Provider: LIZET DE LA GARZA MD Common Visit Codes: PROCEDURE ONLY EMILY FRIEDMAN Feb 20, 2025 08:10
[2025-02-20] MEDS: ENOXAPARIN SOD 40 MG/0.4 ML SYRINGE SC SCH (09:58)
[2025-02-20] MEDS: ONDANSETRON HCL 4 MG/2 ML VIAL IV PRN (12:36)
[2025-02-20] MEDS: MORPHINE SULFATE INJ 2 MG/ml SYRG IV PRN (12:37)
[2025-02-20 13:00] VITALS: PULSE 74; RESP 18; O2SAT 98
--- NOTE | 2025-02-20 13:52 | DVHPN2 ---
Subjective Patient continues to report having some tightness to abdomen. Denies any fevers, chills Reviewed: Care Plan, H&P, Labs, Medications Changes from previous H/P or p: No Changes General: Per HPI Objective Vitals Vital Signs Date Time Temp Pulse Resp B/P (MAP) Pulse Ox O2 Delivery O2 Flow Rate FiO2 02/20/25 13:33 74 18 126/93 02/20/25 13:00 98.7 98 98.7 02/20/25 13:00 Room Air* 0 21 General Appearance: Alert, Oriented X3, Cooperative, mild distress HEENT: Atraumatic, PERRLA Lungs: Clear to auscultation, Normal air movement Cardiovascular: Normal S1, Normal S2 Abdomen: Other (Hepatosplenomegaly) Genitourinary: No Apparent Abnormalities Musculoskeletal: Normal sensory function, Normal motor function Neuro: Normal gait, Normal speech Skin: Dry, Intact Psych/Mental Status: Mental status NL, Mood NL Medications Current Medications Medications Dose Ordered Sig/Nannette Route Start Time Stop Time Status Last Admin Dose Admin Ondansetron HCl 4 mg Q4HP PRN IV 02/20/25 05:30 02/20/25 12:36 4 MG Morphine Sulfate 2 mg Q4HPRN PRN IV 02/20/25 05:30 02/20/25 12:37 2 MG Enoxaparin Sodium 40 mg DAILY SC 02/20/25 10:00 02/20/25 09:58 40 MG Metronidazole 100 ml @ 100 mls/hr Q8HR IV 02/20/25 14:00 UNV Albumin Human 100 ml @ 100 mls/hr Q8H IV 02/20/25 07:30 02/21/25 00:29 02/20/25 13:07 100 MLS/HR Metronidazole 100 ml @ 100 mls/hr Q8HR IV 02/20/25 07:36 02/20/25 09:58 100 MLS/HR Ceftriaxone Sodium/Dextrose 50 ml @ 50 mls/hr DAILY IV 02/20/25 07:37 02/20/25 09:24 50 MLS/HR Laboratory Results Laboratory Tests 02/20/25 03:39 Chemistry Test 02/20/25 03:39 02/20/25 05:45 Albumin 4.4 g/dL (3.2-4.8) Calcium Level 9.4 mg/dL (8.7-10.4) Total Protein 8.6 g/dL (5.7-8.2) H Magnesium Level 2.1 mg/dL (1.6-2.6) Phosphorus Level 2.9 mg/dL (2.4-5.1) Coagulation Test 02/20/25 03:39 Prothrombin Time 11.9 sec (9.3-11.8) H Prothrombin Time INR 1.14 (0.9-1.15) Lipid panel Test 02/20/25 03:39 02/20/25 05:45 Lipase 64 U/L (12-53) H Cholesterol Level 141 mg/dL (< 200) HDL Cholesterol 43 mg/dL (40-59) Triglycerides Level 60 mg/dL (< 150) LFT Test 02/20/25 03:39 Alanine Aminotransferase (ALT) 14 U/L (7-40) Alkaline Phosphatase 94 U/L (46-116) Aspartate Amino Transferase (AST) 22 U/L (13-40) Total Bilirubin 0.6 mg/dL (0.2-1.0) HgA1c, TSH Test 02/20/25 05:45 Hemoglobin A1c 6.0 % A1C (<5.7) H Thyroid Stimulating Hormone (TSH) 1.77 uIU/mL (0.55-4.78) Labs and/or images reviewed: Labs reviewed by me, Image(s) reviewed by me Assessment/Plan Assessment/Plan Impression: -polycystic liver disease -severe ascites -obesity -rule out spontaneous bacterial peritonitis Plan: -patient is status post paracentesis with 10 L removed. Patient hemodynamically stable. Noted greater than 500 WBC and peritoneal fluid. -continue with the antibiotic therapy with Rocephin and Flagyl -pain management -start diet -repeat labs in a.m. Monitor peritoneal fluid culture. If no growth, consider DC Total time spent with patient discussing and formulating plan of care: 35 minutes. This medical document was created using an electronic medical record system with [employer] dictation system. Although this document has been carefully reviewed, there may still be some phonetic and typographical errors. These areas are purely typographical due to imperfections of the software programs, and do not reflect any compromise in the patient's medical care. Plan discussed with: Patient, Other (RN) My Orders Orders - JACINTO STANTON [employer] Procedure Category Date Status Time Hepatic Diet DIET 02/20/25 Transmitted (50gmpro,2gmna) Lunch Acetaminophen Tab Or PHA 02/20/25 Verified Cap (Tylenol Tablet 14:00 Ondansetron Hcl PHA 02/20/25 Verified (Zofran) 14:00 Docusate Sodium PHA 02/20/25 Verified Capsule (Colace 14:00 Date of Service: Feb 20, 2025 Billing Provider: JACINTO STANTON NP Common Visit Codes: [id number] INP/OBS CARE(HIGH) JACINTO STANTON NP Feb 20, 2025 13:52
[2025-02-20] MEDS ORDERED: ONDANSETRON HCL 4 MG/2 ML VIAL IV PRN (14:00)
[2025-02-20] MEDS ORDERED: DOCUSATE SOD 100 MG CAP PO PRN (14:00)
[2025-02-20] MEDS ORDERED: ACETAMINOPHEN 500 MG TAB or CAP PO PRN (14:00)
[2025-02-20 14:15] LABS: Amphetamine Screen, Urine Neg (NEGATIVE); Barbiturate Scree,Urine Neg (NEGATIVE); Benzodiazephine Screen, Urine Neg (NEGATIVE); Cannabinoid Screen, Urine Neg (NEGATIVE); Cocaine Screen, Urine Neg (NEGATIVE); Opiate Scree,Urine Neg (NEGATIVE); Phencyclidine Screen, Urine Neg (NEGATIVE)
[2025-02-20 14:26] LABS: Urine Protein, UAD 1+ (Negative)
[2025-02-20 19:30] VITALS: PULSE 97; RESP 15; O2SAT 95
[2025-02-20 23:55] VITALS: BP 137/95; PULSE 89; RESP 16; TEMP 96.1; O2SAT 94
[2025-02-21 01:08] VITALS: BP 137/95; PULSE 89; RESP 16; TEMP 96.1; O2SAT 94
[2025-02-21 01:11] VITALS: BP 137/95; PULSE 89; RESP 16; TEMP 96.1; O2SAT 98
[2025-02-21 05:00] VITALS: BP 119/89; PULSE 80; RESP 16; TEMP 97.3; O2SAT 95
--- NOTE | 2025-02-21 05:58 | DVH ---
CHEST RADIOGRAPH Indication: SOB Technique: Single frontal view of the chest was obtained COMPARISON: XY CHEST PORTABLE on DOS: 11/05/24, XY CHEST XRAY 1 VIEW on DOS: 10/04/24 FINDINGS: Lines and Tubes: None Lungs: Clear Pleura: No effusion. No pneumothorax. Cardiomediastinal contours: Unremarkable Bones: Unremarkable IMPRESSION: 1. No acute disease.
[2025-02-21 08:00] VITALS: PULSE 73; RESP 18; O2SAT 98
[2025-02-21 08:58] VITALS: BP 129/77; PULSE 82; RESP 18; TEMP 99.7; O2SAT 96
--- NOTE | 2025-02-21 11:43 | ECG ---
[facility] Test Date: 2025-02-20 Test Time: 06:10:46 Pat Name: CHAIM WARD Department: Room: 0284T B Gender: M Vp Of Product: PRISCILA : 1970 Requested By: GEOVANNY GARCES Order Number: [id number] Reading MD: Andrew Oquendo Measurements Intervals [place] Rate: 91 P: 24 ID: [id number] QRS: -45 QRSD: 144 T: -12 QT: 376 QTc: 463 Interpretive Statements Sinus rhythm RBBB and LAFB Electronically Signed On 02-21-2025 19:18:06 PDT by Andrew Oquendo Please click the below link to view image of tracing.
[2025-02-21 12:48] VITALS: BP 138/93; PULSE 78; RESP 20; TEMP 98; O2SAT 94
[2025-02-21] MEDS ORDERED: CEFD300C2 PO (14:11)
--- NOTE | 2025-02-21 14:15 | DVHDS2 ---
Discharge Summary Date of Admission Feb 20, 2025 at 05:28 Date of Discharge: Feb 21, 2025 Admitting Diagnosis Decompensated liver cirrhosis ascites Labs/Diagnostic Data: Laboratory Results Test 02/20/25 08:33 02/20/25 05:45 02/20/25 05:34 02/20/25 05:31 Body Fluid Source Peritoneal fluid Body Fluid pH 8.0 Body Fluid WBC (Manual) 566 CUMM (0-200) Body Fluid RBC (Manual) 7921 CUMM (0-2000) Body Fluid Mononuclear Cells 85 % Body Fluid Polymorphonuclear Cells 15 % (0-25) Hemoglobin A1c 6.0 % A1C (<5.7) Lactic Acid Level 1.3 mmol/L (0.4-2.0) Phosphorus Level 2.9 mg/dL (2.4-5.1) Magnesium Level 2.1 mg/dL (1.6-2.6) Ammonia 13 umol/L (11-32) Lactate Dehydrogenase 183 U/L (120-246) Triglycerides Level 60 mg/dL (< 150) Cholesterol Level 141 mg/dL (< 200) LDL Cholesterol 86 mg/dL (< 100) HDL Cholesterol 43 mg/dL (40-59) Vitamin B12 Level 309 pg/mL (211-911) Vitamin D 25-Hydroxy 18.1 ng/mL (30.0-100) Thyroid Stimulating Hormone (TSH) 1.77 uIU/mL (0.55-4.78) Treponema pallidum Antibody Non-reactive (Negative) HIV (1&2) Antibody Negative (Negative) Urine Color Yellow (Yellow) Urine Clarity Clear (Clear) Urine pH 5.5 (5.0-9.0) Urine Specific [place] 1.034 (1.001-1.035) Urine Protein 1+ (Negative) Urine Ketones Negative (Negative) Urine Blood Negative /uL (Negative) Urine Nitrite Negative (Negative) Urine Bilirubin Negative (Negative) Urine Urobilinogen 2 mg/dL (Negative) Urine Leukocyte Esterase Negative /uL (Negative) Urine RBC 2 /hpf (0 - 3) Urine Microscopic WBC 1 /HPF (0-3) Urine Squamous Epithelial Cells Few /hpf (<5) Urine Bacteria None seen /hpf (None Seen) Urine Mucus Few (None Seen) Urine Glucose Normal mg/dL (Normal) Urine Opiates Screen Neg (NEGATIVE) Urine Fentanyl Screen Neg (NEGATIVE) Urine Barbiturates Screen Neg (NEGATIVE) Urine Phencyclidine Screen Neg (NEGATIVE) Urine Amphetamines Screen Neg (NEGATIVE) Urine Benzodiazepines Screen Neg (NEGATIVE) Urine Cocaine Screen Neg (NEGATIVE) Urine Cannabinoids Screen Neg (NEGATIVE) Test 02/20/25 03:39 White Blood Count 5.7 10^3/uL (4.4-10.8) Red Blood Count 3.93 10^6/uL (4.5-5.90) Hemoglobin 10.5 g/dL (13.5-17.5) Hematocrit 32.5 % (41.0-53.0) Mean Corpuscular Volume 82.7 fL (80.0-100.0) Mean Corpuscular Hemoglobin 26.8 pg (28.0-32.0) Mean Corpuscular Hemoglobin Concent 32.4 g/dL (32.0-36.0) Red Cell Distribution Width 18.1 % (11.8-14.3) Platelet Count 387 10^3/uL (140-450) Mean Platelet Volume 7.3 fL (6.9-10.8) Neutrophils (%) (Auto) 54.5 % (37.0-80.0) Lymphocytes (%) (Auto) 30.4 % (10.0-50.0) Monocytes (%) (Auto) 11.5 % (0.0-12.0) Eosinophils (%) (Auto) 2.1 % (0.0-7.0) Basophils (%) (Auto) 1.5 % (0.0-2.0) Neutrophils # (Auto) 3.1 10 ^3/uL (1.6-8.6) Lymphocytes # (Auto) 1.7 10 ^3/uL (0.4-5.4) Monocytes # (Auto) 0.7 10 ^3/uL (0-1.3) Eosinophils # (Auto) 0.1 10 ^3/uL (0-0.8) Basophils # (Auto) 0.1 10 ^3/uL (0-0.2) Nucleated Red Blood Cells 0.0 % Prothrombin Time 11.9 sec (9.3-11.8) Prothrombin Time INR 1.14 (0.9-1.15) Sodium Level 142 mmol/L (136-145) Potassium Level 3.6 mmol/L (3.5-5.1) Chloride Level 104 mmol/L (98-107) Carbon Dioxide Level 27 mmol/L (20-31) Anion Gap 11 (5-15) Blood Urea Nitrogen 15 mg/dL (9-23) Creatinine 1.28 mg/dL (0.700-1.30) Glomerular Filtration Rate Calc 66 mL/min (>90) BUN/Creatinine Ratio 11.7 (10.0-20.0) Serum Glucose 94 mg/dL (74-106) Calcium Level 9.4 mg/dL (8.7-10.4) Total Bilirubin 0.6 mg/dL (0.2-1.0) Aspartate Amino Transferase (AST) 22 U/L (13-40) Alanine Aminotransferase (ALT) 14 U/L (7-40) Alkaline Phosphatase 94 U/L (46-116) Total Protein 8.6 g/dL (5.7-8.2) Albumin 4.4 g/dL (3.2-4.8) Lipase 64 U/L (12-53) Other Laboratory Tests 02/20/25 03:39 Brief Hx & Hospital Course: History of Present Illness Fernando Chapman is a 54-year-old male patient who presents to the ED with chief complaint of diffuse abdominal pain and abdominal distention with occurred progressively for the past week and got worse today, prompting his visit to the ED. patient has history of polycystic liver disease (questionable alcoholic etiology), he is currently in the liver transplant list of [place], he has been off of alcohol for the past 10 years. He denies fever, chills or any other associated symptoms Course of hospitalization: Patient was started on antibiotic therapy with Rocephin and Flagyl. Patient had paracentesis with 10 L removed. Patient denies having any fevers, chills, with resolution of abdominal pain. Patient's peritoneal fluid negative for any growth thus far. Patient will be discharged home and continued on antibiotic therapy with cefdinir 300 mg p.o. b.i.d. for five days per he is instructed to follow up with his PCP in 1-2 weeks. All questions answered. Physical examination General: Alert and Oriented x3. No acute distress. Well-nourished. Eyes: EOMI. Anicteric. HENT: Moist mucous membranes. Lungs: Clear to auscultation bilaterally. No accessory muscle use. Cardiovascular: Regular rate and rhythm. No murmur. No JVD. Abdomen: Soft, non-tender and non-distended. No palpable masses. Extremities: No edema. Non-tender. Skin: No rashes or lesions. Warm. Neurologic: No focal neurological deficits. CN II-XII grossly intact, but not individually tested. Psychiatric: Cooperative. Appropriate mood and affect. Total time spent with patient discussing and formulating plan of care: 35 minutes. This medical document was created using an electronic medical record system with [employer] dictation system. Although this document has been carefully reviewed, there may still be some phonetic and typographical errors. These areas are purely typographical due to imperfections of the software programs, and do not reflect any compromise in the patient's medical care. Condition at Discharge: Fair Final Diagnosis/Problems List Severe ascites secondary to polycystic liver disease -severe ascites -obesity -rule out spontaneous bacterial peritonitis Discharge Disposition: Home Discharge Instruct/Medications Diet: Regular Activity: No Restrictions, As Tolerated Follow Up/Referral: Follow up with PCP in 1-2 weeks Medications: Cefdinir 300 mg p.o. b.i.d. x5 days Scheduled Cefdinir (Cefdinir), 1 CAP PO BID Ferrous Sulfate (Ferrous Sulfate), 1 TAB PO BID Folic Acid (Folic Acid), 1 MG PO DAILY Furosemide (Lasix), 1 TAB PO DAILY Multiple Vitamin (Mvi Tab), 1 TAB PO DAILY Spironolactone (Aldactone), 1 TAB PO DAILY Thiamine Hcl (Vitamin B-1), 100 MG PO DAILY Scheduled PRN Docusate Sodium (Colace), 1 CAP PO BID PRN Senna (Senokot), 1 TAB PO BID PRN Trazodone Hcl (Trazodone Hcl), 50 MG PO QHSP PRN 36 Discharge Statement: "Patient was advised to return to the ER or call 911 if any headaches, dizziness, shortness of breath, chest pain, abdominal pain, bleeding, fevers, or worsening of medical condition. Patient was counseled about treatment plan, medications, possible side effects, patientverbalized understanding. All questions were answered to the best of my ability. This discharge took greater then 30 minutes in planning, reviewing documentation, counseling the patient, and discussing with other team members." ASSESSMENT ASSESSMENT Assessment Severe ascites secondary to polycystic liver disease Date of Service: Feb 21, 2025 Billing Provider: JACINTO STANTON NP Common Visit Codes: 54627-HIH/OBS DISCH DAY >30min JACINTO STANOTN NP Feb 21, 2025 14:15
[2025-02-21 16:44] LABS: Hepatitis B Surface Antigen Negative (Negative)
[2025-02-21 17:01] LABS: Hepatitis C Antibody Negative (Negative)
[2025-02-22 14:07] LABS: Albumin, Body Fluid 2.8 g/dL (Not Estab.); Glucose, Body Fluid 102.0 mg/dL (.); LD, Body Fluid 111.0 IU/L (.)
[2025-02-23 02:07] LABS: Chlamydia Trachomatis, NAA Negative (Negative); Neisseria gonorrhoeae, NAA Negative (Negative)
== END 2025-02-21 16:04 | disposition home or self-care (01) | DRG 372 ==
LOC: ER 02:53 → OVERFLOW 05:28 → TELE-WESTW 23:48
PROVIDERS: ADMIT Nurse Practitioner Acute Care; ATTEND Nurse Practitioner Acute Care
PROC: 0W9G3ZZ Drainage of Peritoneal Cavity, Percutaneous Approach (ICD-10-PCS; principal; 2025-02-20)
DX: K65.2 Spontaneous bacterial peritonitis (principal); Q44.6 Cystic disease of liver; R18.8 Other ascites; K74.60 Unspecified cirrhosis of liver; Z76.82 Awaiting organ transplant status; E66.9 Obesity, unspecified; I12.9 Hypertensive chronic kidney disease with stage 1 through stage 4 chronic kidney disease, or unspecified chronic kidney disease; F10.11 Alcohol abuse, in remission; N28.1 Cyst of kidney, acquired; D64.9 Anemia, unspecified; N18.32 Chronic kidney disease, stage 3b; Y90.9 Presence of alcohol in blood, level not specified; Z68.37 Body mass index [BMI] 37.0-37.9, adult
CPT/HCPCS: 36415; 49083; 71045; 74176; 80053; 80061; 80074; 80307; 81001; 82140; 82306; 82570; 82607; 83036; 83605; 83615; 83690; 83735; 83986; 84100; 84443; 85025; 85610; 86703; 86780; 87040; 87071; 87086; 87205; 89051; 93005; 96365; 96367; 96375; G0378; J2405; J3490; P9047